=== PATIENT | male | born 1935 | race Caucasian/White ===

== ENCOUNTER → 2018-05-04 16:27 | Outpatient (CLI) | payer MEDICARE, OTHER, SELFPAY ==
[2018-05-04 18:15] LABS: Vitamin D 25 Hydroxy (D3) 31.2 ng/mL (30.0-100.0)
== END ==
PROVIDERS: Family Provider Internal Medicine; PCP Internal Medicine; Visit Provider Psychiatry & Neurology Neurology
DX: E55.9 Vitamin D deficiency, unspecified (principal)
CPT/HCPCS: 36415; 82306

== ENCOUNTER 2018-07-21 10:59 | Day surgery (SDC) | payer MEDICARE, OTHER, SELFPAY ==
[2018-07-09 09:21] VITALS: BMI 24.7
[2018-07-21] MEDS: PROPARACAINE 0.5% OPHTH SOL 2 DROPS EYE-OP (12:50)
[2018-07-21] MEDS: CATARACT EYE COMPOUND (10 DROPS/SYRINGE) 3 DROPS EYE-OP (12:55)
[2018-07-21 12:58] VITALS: BP 159/69; PULSE 58; RESP 16; TEMP 36.3; O2SAT 98; BMI 25.0
--- NOTE | 2018-07-21 13:41 | P.OP_ITS ---
Operative Date/Time/Diagnoses Pre-op diagnosis: Nuclear cataract right eye Procedure & Clinicians Procedure: Cataract Surgery Same procedure as scheduled: Yes Surgeon: Kiran Patel Anesthesia Type: MAC +/- and Sedation Operative Notes Procedure in detail: Patient brought to the operating suite. Tetracaine drops placed in the right eye. Patient was prepped and draped in sterile manner. Wire lid speculum was placed in the eye. Betadine drops were placed on the eye. This was irrigated. Lidocaine jelly was placed on the eye. A paracentesis port was created with a side-port blade. 0.1 mL 1% preservative free lidocaine was injected into the anterior chamber. The anterior chamber was deepened with viscoelastic. 2.6 mm keratome was used to create a temporal clear corneal incision. Cystotome and Utrata forceps were used to create continuous tear capsulorrhexis. Balanced salt solution was used to hydro dissect the nucleus. The phacoemulsification handpiece was inserted and the nucleus was removed using the stop and chop technique. The irrigation aspiration handpiece was inserted and the remaining cortex was removed. Anterior chamber was deepened with viscoelastic. An Moran [id number] intraocular lens with a power of 15.5 was injected into the capsular bag. Irrigation aspiration handpiece was inserted and the remaining viscoelastic was removed. Incision was hydrated with balanced salt solution and found to be leak free with pressure with Weck- Lynda sponges. 0.1 mL Vigamox injected anterior chamber. 0.3 mL Kenalog 10 mg was injected subconjunctivally. Lid speculum was removed. The patient left the operating room in excellent condition. Complications: none Condition: stable Disposition: same day surgery
--- NOTE | 2018-07-21 13:41 | P.OP.PRE_ITS ---
Pre-operative Note Interval Note Changes: No
--- NOTE | 2018-07-21 13:41 | PM.PREOP ---
Pre-operative Note Interval Note Changes: No
[2018-07-21] MEDS: MOXIFLOXACIN OPHTH DROPS 3 ML BOTTLE 2 DROPS INJ (13:57)
[2018-07-21] MEDS: TRIAMCINOLONE 50 MG/5 ML VIAL INJ (13:57)
[2018-07-21] MEDS: PHENYLEPHRINE/LIDOCAINE VIAL (OR) 0.2 ML EYE-OP (13:57)
[2018-07-21] MEDS: CHONDROIDTIN/SOD HYALURONATE 1.05 ML SYRINGE INTRAOCULA (13:58)
[2018-07-21] MEDS: LIDOCAINE JELLY 2% 5 ML 1 APPLIC TOP (13:58)
[2018-07-21] MEDS: BALANCED SALT IRRIG SOLN NO.2 500 ML, EPINEPHrine 1 MG IRR (13:58)
[2018-07-21] MEDS: TETRACAINE 0.5% OPHTH DROPS 15 ML 2 DROPS EYE-RIGHT (13:58)
[2018-07-21 14:12] VITALS: BP 148/69; PULSE 60; RESP 16; TEMP 36.6; O2SAT 98
== END 2018-07-21 14:24 | disposition home or self-care (01) ==
LOC: OR 11:01
PROVIDERS: Family Provider Internal Medicine; PCP Internal Medicine; Visit Provider Ophthalmology
DX: H25.11 Age-related nuclear cataract, right eye (principal); F03.90 Unspecified dementia, unspecified severity, without behavioral disturbance, psychotic disturbance, mood disturbance, and anxiety
CPT/HCPCS: J0171; J2250; J3010; J3301

== ENCOUNTER 2018-07-27 15:40 | Emergency (ER) | payer MEDICARE, OTHER, SELFPAY ==
[2018-07-09 09:21] VITALS: BMI 24.7
[2018-07-27 16:34] VITALS: BP 116/67; PULSE 67; RESP 18; TEMP 37.1; O2SAT 97; BMI 24.0
[2018-07-27 18:59] VITALS: TEMP 37.1
--- NOTE | 2018-07-27 19:26 | DI.CT.S_ITS ---
PROCEDURE: CT HEAD/BRAIN WO CON INDICATIONS: confusion,weakness TECHNIQUE: Noncontrast 4.5 mm thick angled axial sections acquired from the foramen magnum to the vertex, with coronal and sagittal reformats. For radiation dose reduction, the following was used: automated exposure control, adjustment of mA and/or kV according to patient size. COMPARISON: [facility], MR, MR BRAIN WO CON, 09/05/2016, 13:32. FINDINGS: Image quality: Excellent. CSF spaces: Basal cisterns are patent. No extra-axial fluid collections. The ventricles are symmetric in size and shape. Brain: No intracranial bleeds or masses. There is cerebral volume loss for age, with resultant ventricular and sulcal prominence. There are periventricular and deep white matter chronic small vessel ischemic changes. There is intracranial internal carotid artery atherosclerosis. Skull and face: Calvarium and visualized facial bones appear intact, without suspicious lesions. Sinuses: Visualized sinuses and mastoids are clear. IMPRESSION: No significant of acute intracranial pathology. Moderate atrophy and mild periventricular white matter microangiopathic changes. Dictated by: Gerson Weir M.D. on 07/27/2018 at 19:47 Approved by: Gerson Weir M.D. on 07/27/2018 at 19:48
--- NOTE | 2018-07-27 19:26 | DI.RAD.S_ITS ---
PROCEDURE: XR CHEST 1V INDICATIONS: weakness TECHNIQUE: One view of the chest was acquired. COMPARISON: [facility], , CHEST 2 VIEW, 10/07/2017, 15:59. FINDINGS: Surgical changes and devices: None. Lungs and pleura: Small left pleural effusion and bilateral pulmonary edema is seen. No definite focal infiltrate. No gross pneumothorax. Mediastinum: Mediastinal contours appear normal. Heart size is normal. Bones and chest wall: No suspicious bony lesions. Overlying soft tissues appear unremarkable. IMPRESSION: Congestive changes and small left pleural effusion with mild bilateral pulmonary edema. No definite focal infiltrate. No gross pneumothorax. Dictated by: Gerson Weir M.D. on 07/27/2018 at 19:48 Approved by: Gerson Weir M.D. on 07/27/2018 at 19:50
--- NOTE | 2018-07-27 19:58 | ED.AMS ---
HPI - Altered Mental Status General Chief Complaint: Altered Mental Status Stated Complaint: can barely walk or stand, confusion Time Seen by Provider: 07/27/18 19:08 Source: patient and family Mode of arrival: ambulatory Limitations: no limitations History of Present Illness HPI narrative: 83-year-old former smoker presents with his for evaluation of generalized fatigue he for the past few days. Admittedly he has had a harder time getting around and states he might have been more confused and a bit sluggish as well. The patient states he actually feels much better today. He denies any focal neurologic findings such as blurred vision, trouble with speech or numbness, focal weakness or tingling. He denies nausea, vomiting or diarrhea. He denies any chest pain or shortness of breath. He denies any change in his diet. He does state he recently started taking acetazolamide as prescribed by his administrator health care facility for trouble with ocular pressures. He also takes memantine and there is a possibility of a drug interaction causing increased memantine levels due to limited renal excretion. Patient is otherwise well and free of complaint. MD complaint: altered mental status and confusion Onset (ago): day(s) Timing confirmed by: spouse Severity: moderate Consistency of symptoms: unknown Associated symptoms: denies other symptoms Related Data Home Medications Medication Instructions Recorded Confirmed donepezil [Aricept] 2 tab PO QPM #0 10/04/17 07/27/18 fluoxetine 20 mg PO QDAY #0 10/04/17 07/27/18 latanoprost BEDTIME 07/21/18 memantine [Namenda] 10 mg PO BID 07/21/18 07/27/18 salmeterol [Serevent Diskus] 1 inh INHALATION BID 07/21/18 07/27/18 acetazolamide 1 tab PO QID 07/27/18 07/27/18 ergocalciferol (vitamin D2) 1 cap PO QWEEK 07/27/18 07/27/18 [Vitamin D2] Allergies Allergy/AdvReac Type Severity Reaction Status Date / Time No Known Allergies Allergy Uncoded 07/27/18 16:40 Review of Systems Review of Systems All systems reviewed & are unremarkable except as noted in HPI and below Constitutional Denies chills, Denies fever(s), Denies lethargy and Reports weakness Eyes Denies change in vision, Denies eye discharge, Denies irritation and Denies loss of vision ENT Ears, Nose, Mouth, and Throat: Denies change in voice, Denies neck pain and Denies sore throat Cardiovascular Denies chest pain, Denies irregular heart rhythm, Denies lightheadedness, Denies palpitations, Denies dyspnea, Denies dyspnea on exertion and Denies orthopnea Respiratory Denies cough, Denies dyspnea, Denies dyspnea on exertion and Denies wheezing Gastrointestinal Gastrointestinal: Denies abdominal pain, Denies change in bowel habits, Denies diarrhea, Denies nausea and Denies vomiting Genitourinary Denies hematuria, Denies flank pain, Denies urinary incontinence and Denies urinary urgency Musculoskeletal Denies neck pain Integumentary/Breasts Denies pruritus, Denies erythema, Denies rash and Denies wounds Neurologic Denies confusion, Denies loss of vision and Reports weakness Psychiatric Denies anxiety, Denies confusion, Denies depression, Denies homicidal ideation and Denies suicidal ideation Endocrine Denies palpitations Hematologic/Lymphatic Denies easy bruising Allergic/Immunologic Denies wheezing Exam Narrative Exam Narrative: 83-year-old male resting comfortably in no obvious distress Initial Vital Signs Initial Vital Signs: Vital Signs Temperature 98.8 F 07/27/18 16:34 Pulse Rate 67 07/27/18 16:34 Respiratory Rate 18 07/27/18 16:34 Blood Pressure 116/67 07/27/18 16:34 Pulse Oximetry 97 07/27/18 16:34 Const General: cooperative and well developed Nutritional Appearance: well nourished Orientation: alert, awake, oriented x3 and confused Other: slightly confused per , but not a tremendous departure from normal. [facility] Head: normocephalic and atraumatic Ears: external ears normal and TM's normal bilaterally Nose: external nose normal and No nasal discharge Face and sinus: sinuses nontender, face symmetric, no sinus tenderness and No dry mucous membranes Mouth: oral mucosae normal and moist mucous membranes Teeth and gingiva: dentition normal Throat: tonsils normal and uvula midline Eyes General: appearance normal, both eyes and all related structures Eyelids: eyelids normal Conjunctivae: conjunctivae normal Sclera: sclerae normal Pupils: PERRL EOM: EOM intact bilaterally Neck Neck: normal visual inspection, trachea midline, No lymphadenopathy, No midline deformity and No JVD Lymphatic: No lymphedema Chest Chest: normal inspection of the chest Resp Effort & Inspection: normal respiratory effort, able to speak in complete sentences, no respiratory distress and no use of accessory muscles Auscultation: clear to auscultation bilaterally, no rales, no rhonchi and no wheezes Cardio Rate: regular rate Rhythm: regular rhythm Heart Sounds: no click, no gallops, no murmurs and no rubs Pulses: normal peripheral pulses GI Inspection: non-distended Palpation: soft, no hepatosplenomegaly, No guarding, No pulsatile mass and No tender Auscultation: normal bowel sounds Back/Spine/Pelvis Back: No CVA tenderness Cervical Spine: cervical ROM normal and No pain with cervical ROM Thoracic/Lumbar Spine: thoracic and lumbar spine normal to inspection Neuro General: alert, oriented x3 and no focal motor deficits Speech: speech normal Other: NIH Stroke Scale 1a. LOC: Patient is alert and keenly responsive (0) 1b. LOC Questions: Patient answers both LOC questions accurately (0) 1c. LOC Commands: Patient performs both tasks correctly (0) 2. Best Gaze: Normal (0) 3. Visual: No visual loss (0) 4. Facial palsy: Normal symmetrical movements (0) 5. Motor arm: No drift (0) 6. Motor leg: No drift (0) 7. Limb ataxia: Absent (0) 8. Sensory: Normal (0) 9. Best language: No aphasia; normal (0) 10. Dysarthria: Normal (0) 11. Extinction and inattention: No abnormality (0) NIHSS: 0 Extrem General: full ROM, no clubbing, cyanosis or edema, no pedal edema and no calf tenderness Psych Appearance: well kempt Mental Status: mental status grossly normal Attitude: cooperative Thought Content: normal and suicidality Judgment: judgment good Course Orders Ordered: ED Orders 07/27/18 19:26 CT head/brain wo con Stat XR chest 1V Stat EKG-12 Lead Stat 07/27/18 19:49 Basic Metabolic Panel Stat Complete Blood Count AUTO DIFF Stat Troponin I Stat Vital Signs - 8 hr 07/27/18 18:59 Temperature 98.7 F MDM - Altered Mental Status Differential Diagnosis Likely altered mental status, delirium, hypoglycemia, hyponatremia and subarachnoid hemorrhage Medical Records Attestation: I reviewed the patient's medical records. Lab Data Attestation: I reviewed the patient's lab results. Result diagrams: 07/27/18 19:49 07/27/18 19:49 Lab Results 07/27/18 07/27/18 Range/Units 19:49 19:49 WBC 8.2 (4.5-11.0) X10^3/uL RBC 5.41 (4.5-5.9) X10^6/uL Hgb 15.2 (13.5-17.5) g/dL Hct 46.6 (41-53) % MCV 86.2 (80-100) fL MCH 28.1 (26-34) PG MCHC 32.6 (30-36) % RDW 13.9 (11.6-14.8) % Plt Count 310 (150-400) X10^3/uL Neut % (Auto) 68.9 (50-75) % Lymph % (Auto) 12.3 L (25-40) % [place] % (Auto) 8.9 (3-14) % Eos % (Auto) 9.0 H (2-4) % Baso % (Auto) 0.9 (0-2) % Neut # (Auto) 5600 (5513-4149) /uL Sodium 144 (137-145) mmol/L Potassium 4.1 (3.4-5.1) mmol/L Chloride 109 H (98-107) mmol/L Carbon Dioxide 21 L (22-32) mmol/L BUN 18 (9-20) mg/dL Creatinine 1.40 H (0.66-1.25) mg/dL Estimated GFR 48.6 L (>60) mL/min BUN/Creatinine Ratio 12.9 (6-22) Glucose 95 (80-110) mg/dL Calcium 9.8 (8.4-10.2) mg/dL Troponin I < 0.012 (0.01-0.034) ng/mL Imaging Data CT scan - head: Radiologist's impression: [address] [address] [address] Scan Report Signed Patient: Nathaniel Regan [facility]#: [id number] : 7Acct:[id number] Age/Sex: 83 / MDate of Service: 07/27/18 Loc: ED Accession Number: [id number] Procedure: CT head/brain wo con Ordering Provider: Ben Oliva D.O. PROCEDURE: CT HEAD/BRAIN WO CON INDICATIONS: confusion,weakness TECHNIQUE: Noncontrast 4.5 mm thick angled axial sections acquired from the foramen magnum to the vertex, with coronal and sagittal reformats. For radiation dose reduction, the following was used: automated exposure control, adjustment of mA and/or kV according to patient size. COMPARISON: [facility], MR, MR BRAIN WO CON, 09/05/2016, 13:32. FINDINGS: Image quality: Excellent. CSF spaces: Basal cisterns are patent. No extra-axial fluid collections. The ventricles are symmetric in size and shape. Brain: No intracranial bleeds or masses. There is cerebral volume loss for age, with resultant ventricular and sulcal prominence. There are periventricular and deep white matter chronic small vessel ischemic changes. There is intracranial internal carotid artery atherosclerosis. Skull and face: Calvarium and visualized facial bones appear intact, without suspicious lesions. Sinuses: Visualized sinuses and mastoids are clear. IMPRESSION: No significant of acute intracranial pathology. Moderate atrophy and mild periventricular white matter microangiopathic changes. Dictated by: Gerson Weir M.D. on 07/27/2018 at 19:47 Approved by: Gerson Weir M.D. on 07/27/2018 at 19:48 ECG Data Attestation: I personally reviewed and interpreted this ECG as follows: Prior ECG tracings: not available for review MDM Narrative Medical decision making narrative: Patient continues to feel improvement. No significant findings on exam, labs, imaging. Recent medication changes could surely be playing a role. Unclear if slight bump in creatinine is a result or cause of how he has been feeling. Patient able to follow closely with PCP. quite comfortable taking him home. Discharge Plan Departure Patient Disposition: Home Clinical Impression: Weakness Discharge Date/Time: 07/27/18 22:00 Interventions: ED Discharge Assessment Last Done: 07/27/18 22:00 Instructions: DI for Fatigue Activity Restrictions/Additional Instructions: *You have been diagnosed with [ generalized weakness and fatigue, subtle dehydration and possible medication reaction ] *What to do: * stop taking acetazolamide *Follow up with your primary care provider in 2-3 days, call for an appointment. Let them know you were seen in the Emergency Department and that we ask that you be seen in follow up *Return to ER if you should have any new, worsening or concerning symptoms, such as [increased weakness, confusion or fatigue. Please also return for any other bothersome symptoms ] Prescriptions: No Action fluoxetine 20 MG capsule 20 mg PO QDAY Qty: 0 RF: 0 donepezil [Aricept] 10 MG tablet 2 tab PO QPM Qty: 0 RF: 0 latanoprost 0.005 % Drops BEDTIME RF: 0 salmeterol [Serevent Diskus] 50 mcg/dose Blister With Device 1 inh INHALATION BID RF: 0 memantine [Namenda] 10 mg Tablet 10 mg PO BID RF: 0 acetazolamide 250 mg tablet 1 tab PO QID RF: 0 ergocalciferol (vitamin D2) [Vitamin D2] 50,000 unit capsule 1 cap PO QWEEK RF: 0 Referrals: Kenny Bruno MD [Primary Care Provider] -
[2018-07-27 20:04] LABS: Add Manual Diff / Slide Review NO; Basophils Percent Auto 0.9 % (0-2); Hematocrit 46.6 % (41-53); Hemoglobin 15.2 g/dL (13.5-17.5); Lymphocytes Percent Auto 12.3 % (25-40); Mean Corpuscular HGB Conc 32.6 % (30-36); Mean Corpuscular Hemoglobin 28.1 PG (26-34); Mean Corpuscular Volume 86.2 fL (80-100); Monocytes Percent Auto 8.9 % (3-14); Neutrophils Absolute Auto 5600 /uL (3000-5900); Neutrophils Percent Auto 68.9 % (50-75); Platelet Count 310 X10^3/uL (150-400); Red Blood Cell Count 5.41 X10^6/uL (4.5-5.9); Red Cell Distribution Width 13.9 % (11.6-14.8); White Blood Cell Count 8.2 X10^3/uL (4.5-11.0)
[2018-07-27 20:15] LABS: BUN Creatinine Ratio 12.9 (6-22); Blood Urea Nitrogen 18 mg/dL (9-20); Calcium 9.8 mg/dL (8.4-10.2); Carbon Dioxide 21 mmol/L (22-32); Chloride 109 mmol/L (98-107); Estimated Glomerular Filt Rate 48.6 mL/min (>60); Glucose 95 mg/dL (80-110); HEMOLYSIS < 15 (0-50); Potassium 4.1 mmol/L (3.4-5.1); Sodium 144 mmol/L (137-145)
[2018-07-27 20:27] LABS: Troponin I < 0.012 ng/mL (0.01-0.034)
--- NOTE | 2018-07-28 02:30 | ED_ITS ---
HPI - Altered Mental Status General Chief Complaint: Altered Mental Status Stated Complaint: can barely walk or stand, confusion Time Seen by Provider: 07/27/18 19:08 Source: patient and family Mode of arrival: ambulatory Limitations: no limitations History of Present Illness HPI narrative: 83-year-old former smoker presents with his for evaluation of generalized fatigue he for the past few days. Admittedly he has had a harder time getting around and states he might have been more confused and a bit sluggish as well. The patient states he actually feels much better today. He denies any focal neurologic findings such as blurred vision, trouble with speech or numbness, focal weakness or tingling. He denies nausea, vomiting or diarrhea. He denies any chest pain or shortness of breath. He denies any change in his diet. He does state he recently started taking acetazolamide as prescribed by his ditch cleaner for trouble with ocular pressures. He also takes memantine and there is a possibility of a drug interaction causing increased memantine levels due to limited renal excretion. Patient is otherwise well and free of complaint. MD complaint: altered mental status and confusion Onset (ago): day(s) Timing confirmed by: spouse Severity: moderate Consistency of symptoms: unknown Associated symptoms: denies other symptoms Related Data Home Medications Medication Instructions Recorded Confirmed donepezil [Aricept] 2 tab PO QPM #0 10/04/17 07/27/18 fluoxetine 20 mg PO QDAY #0 10/04/17 07/27/18 latanoprost BEDTIME 07/21/18 memantine [Namenda] 10 mg PO BID 07/21/18 07/27/18 salmeterol [Serevent Diskus] 1 inh INHALATION BID 07/21/18 07/27/18 acetazolamide 1 tab PO QID 07/27/18 07/27/18 ergocalciferol (vitamin D2) 1 cap PO QWEEK 07/27/18 07/27/18 [Vitamin D2] Allergies Allergy/AdvReac Type Severity Reaction Status Date / Time No Known Allergies Allergy Uncoded 07/27/18 16:40 Review of Systems Review of Systems All systems reviewed & are unremarkable except as noted in HPI and below Constitutional Denies chills, Denies fever(s), Denies lethargy and Reports weakness Eyes Denies change in vision, Denies eye discharge, Denies irritation and Denies loss of vision ENT Ears, Nose, Mouth, and Throat: Denies change in voice, Denies neck pain and Denies sore throat Cardiovascular Denies chest pain, Denies irregular heart rhythm, Denies lightheadedness, Denies palpitations, Denies dyspnea, Denies dyspnea on exertion and Denies orthopnea Respiratory Denies cough, Denies dyspnea, Denies dyspnea on exertion and Denies wheezing Gastrointestinal Gastrointestinal: Denies abdominal pain, Denies change in bowel habits, Denies diarrhea, Denies nausea and Denies vomiting Genitourinary Denies hematuria, Denies flank pain, Denies urinary incontinence and Denies urinary urgency Musculoskeletal Denies neck pain Integumentary/Breasts Denies pruritus, Denies erythema, Denies rash and Denies wounds Neurologic Denies confusion, Denies loss of vision and Reports weakness Psychiatric Denies anxiety, Denies confusion, Denies depression, Denies homicidal ideation and Denies suicidal ideation Endocrine Denies palpitations Hematologic/Lymphatic Denies easy bruising Allergic/Immunologic Denies wheezing Exam Narrative Exam Narrative: 83-year-old male resting comfortably in no obvious distress Initial Vital Signs Initial Vital Signs: Vital Signs Temperature 98.8 F 07/27/18 16:34 Pulse Rate 67 07/27/18 16:34 Respiratory Rate 18 07/27/18 16:34 Blood Pressure 116/67 07/27/18 16:34 Pulse Oximetry 97 07/27/18 16:34 Const General: cooperative and well developed Nutritional Appearance: well nourished Orientation: alert, awake, oriented x3 and confused Other: slightly confused per , but not a tremendous departure from normal. [facility] Head: normocephalic and atraumatic Ears: external ears normal and TM's normal bilaterally Nose: external nose normal and No nasal discharge Face and sinus: sinuses nontender, face symmetric, no sinus tenderness and No dry mucous membranes Mouth: oral mucosae normal and moist mucous membranes Teeth and gingiva: dentition normal Throat: tonsils normal and uvula midline Eyes General: appearance normal, both eyes and all related structures Eyelids: eyelids normal Conjunctivae: conjunctivae normal Sclera: sclerae normal Pupils: PERRL EOM: EOM intact bilaterally Neck Neck: normal visual inspection, trachea midline, No lymphadenopathy, No midline deformity and No JVD Lymphatic: No lymphedema Chest Chest: normal inspection of the chest Resp Effort & Inspection: normal respiratory effort, able to speak in complete sentences, no respiratory distress and no use of accessory muscles Auscultation: clear to auscultation bilaterally, no rales, no rhonchi and no wheezes Cardio Rate: regular rate Rhythm: regular rhythm Heart Sounds: no click, no gallops, no murmurs and no rubs Pulses: normal peripheral pulses GI Inspection: non-distended Palpation: soft, no hepatosplenomegaly, No guarding, No pulsatile mass and No tender Auscultation: normal bowel sounds Back/Spine/Pelvis Back: No CVA tenderness Cervical Spine: cervical ROM normal and No pain with cervical ROM Thoracic/Lumbar Spine: thoracic and lumbar spine normal to inspection Neuro General: alert, oriented x3 and no focal motor deficits Speech: speech normal Other: NIH Stroke Scale 1a. LOC: Patient is alert and keenly responsive (0) 1b. LOC Questions: Patient answers both LOC questions accurately (0) 1c. LOC Commands: Patient performs both tasks correctly (0) 2. Best Gaze: Normal (0) 3. Visual: No visual loss (0) 4. Facial palsy: Normal symmetrical movements (0) 5. Motor arm: No drift (0) 6. Motor leg: No drift (0) 7. Limb ataxia: Absent (0) 8. Sensory: Normal (0) 9. Best language: No aphasia; normal (0) 10. Dysarthria: Normal (0) 11. Extinction and inattention: No abnormality (0) NIHSS: 0 Extrem General: full ROM, no clubbing, cyanosis or edema, no pedal edema and no calf tenderness Psych Appearance: well kempt Mental Status: mental status grossly normal Attitude: cooperative Thought Content: normal and suicidality Judgment: judgment good Course Orders Ordered: ED Orders 07/27/18 19:26 CT head/brain wo con Stat XR chest 1V Stat EKG-12 Lead Stat 07/27/18 19:49 Basic Metabolic Panel Stat Complete Blood Count AUTO DIFF Stat Troponin I Stat Vital Signs - 8 hr 07/27/18 18:59 Temperature 98.7 F MDM - Altered Mental Status Differential Diagnosis Likely altered mental status, delirium, hypoglycemia, hyponatremia and subarachnoid hemorrhage Medical Records Attestation: I reviewed the patient's medical records. Lab Data Attestation: I reviewed the patient's lab results. Result diagrams: 07/27/18 19:49 07/27/18 19:49 Lab Results 07/27/18 07/27/18 Range/Units 19:49 19:49 WBC 8.2 (4.5-11.0) X10^3/uL RBC 5.41 (4.5-5.9) X10^6/uL Hgb 15.2 (13.5-17.5) g/dL Hct 46.6 (41-53) % MCV 86.2 (80-100) fL MCH 28.1 (26-34) PG MCHC 32.6 (30-36) % RDW 13.9 (11.6-14.8) % Plt Count 310 (150-400) X10^3/uL Neut % (Auto) 68.9 (50-75) % Lymph % (Auto) 12.3 L (25-40) % [place] % (Auto) 8.9 (3-14) % Eos % (Auto) 9.0 H (2-4) % Baso % (Auto) 0.9 (0-2) % Neut # (Auto) 5600 (8091-9600) /uL Sodium 144 (137-145) mmol/L Potassium 4.1 (3.4-5.1) mmol/L Chloride 109 H (98-107) mmol/L Carbon Dioxide 21 L (22-32) mmol/L BUN 18 (9-20) mg/dL Creatinine 1.40 H (0.66-1.25) mg/dL Estimated GFR 48.6 L (>60) mL/min BUN/Creatinine Ratio 12.9 (6-22) Glucose 95 (80-110) mg/dL Calcium 9.8 (8.4-10.2) mg/dL Troponin I < 0.012 (0.01-0.034) ng/mL Imaging Data CT scan - head: Radiologist's impression: [address] [address] [address] Scan Report Signed Patient: Nathaniel Regan AM[facility]#: [id number] : 7Acct:[id number] Age/Sex: 83 / MDate of Service: 07/27/18 Loc: ED Accession Number: [id number] Procedure: CT head/brain wo con Ordering Provider: Ben Oliva D.O. PROCEDURE: CT HEAD/BRAIN WO CON INDICATIONS: confusion,weakness TECHNIQUE: Noncontrast 4.5 mm thick angled axial sections acquired from the foramen magnum to the vertex, with coronal and sagittal reformats. For radiation dose reduction, the following was used: automated exposure control, adjustment of mA and/or kV according to patient size. COMPARISON: [facility], MR, MR BRAIN WO CON, 09/05/2016, 13:32. FINDINGS: Image quality: Excellent. CSF spaces: Basal cisterns are patent. No extra-axial fluid collections. The ventricles are symmetric in size and shape. Brain: No intracranial bleeds or masses. There is cerebral volume loss for age , with resultant ventricular and sulcal prominence. There are periventricular and deep white matter chronic small vessel ischemic changes. There is intracranial internal carotid artery atherosclerosis. Skull and face: Calvarium and visualized facial bones appear intact, without suspicious lesions. Sinuses: Visualized sinuses and mastoids are clear. IMPRESSION: No significant of acute intracranial pathology. Moderate atrophy and mild periventricular white matter microangiopathic changes. Dictated by: Gerson Weir M.D. on 07/27/2018 at 19:47 Approved by: Gerson Weir M.D. on 07/27/2018 at 19:48 ECG Data Attestation: I personally reviewed and interpreted this ECG as follows: Prior ECG tracings: not available for review MDM Narrative Medical decision making narrative: Patient continues to feel improvement. No significant findings on exam, labs, imaging. Recent medication changes could surely be playing a role. Unclear if slight bump in creatinine is a result or cause of how he has been feeling. Patient able to follow closely with PCP. quite comfortable taking him home. Discharge Plan Departure Patient Disposition: Home Clinical Impression: Weakness Discharge Date/Time: 07/27/18 22:00 Interventions: ED Discharge Assessment Last Done: 07/27/18 22:00 Instructions: DI for Fatigue Activity Restrictions/Additional Instructions: *You have been diagnosed with [ generalized weakness and fatigue, subtle dehydration and possible medication reaction ] *What to do: * stop taking acetazolamide *Follow up with your primary care provider in 2-3 days, call for an appointment. Let them know you were seen in the Emergency Department and that we ask that you be seen in follow up *Return to ER if you should have any new, worsening or concerning symptoms , such as [increased weakness, confusion or fatigue. Please also return for any other bothersome symptoms ] Prescriptions: No Action fluoxetine 20 MG capsule 20 mg PO QDAY Qty: 0 RF: 0 donepezil [Aricept] 10 MG tablet 2 tab PO QPM Qty: 0 RF: 0 latanoprost 0.005 % Drops BEDTIME RF: 0 salmeterol [Serevent Diskus] 50 mcg/dose Blister With Device 1 inh INHALATION BID RF: 0 memantine [Namenda] 10 mg Tablet 10 mg PO BID RF: 0 acetazolamide 250 mg tablet 1 tab PO QID RF: 0 ergocalciferol (vitamin D2) [Vitamin D2] 50,000 unit capsule 1 cap PO QWEEK RF: 0 Referrals: Kenny Bruno MD [Primary Care Provider] -
== END 2018-07-27 22:00 | disposition home or self-care (01) ==
PROVIDERS: Emergency Provider Emergency Medicine; Family Provider Internal Medicine; PCP Internal Medicine
DX: R53.1 Weakness (principal)
CPT/HCPCS: 36591; 70450; 71045; 80048; 84484; 85025; 93005; 93010; 99282; 99285

== ENCOUNTER 2019-03-09 11:57 | Observation (INO) | payer MEDICARE, OTHER, SELFPAY ==
[2018-07-09 09:21] VITALS: BMI 24.7
[2019-03-09] VITALS (14 sets, daily range): BP systolic 95–173; BP diastolic 46–79; PULSE 54–73; RESP 16–24; TEMP 36.6–36.8; O2SAT 93–99; BMI 25.4
--- NOTE | 2019-03-09 12:10 | DI.RAD.S_ITS ---
PROCEDURE: XR CHEST 1V INDICATIONS: weakness, wheezing TECHNIQUE: One view of the chest was acquired. COMPARISON: [facility], CR, XR CHEST 1V, 07/27/2018, 19:06. FINDINGS: Surgical changes and devices: None. Lungs and pleura: Hyperlucent, hyperinflated lungs with diffusely coarse interstitial markings. No pneumothorax, consolidations, or significant pleural effusions. Chronic bibasilar parenchymal scarring. Mediastinum: Mediastinal contours appear normal. Heart size is normal. Bones and chest wall: Deformities of healing the right rib fractures 5 and 6. Overlying soft tissues are normal. IMPRESSION: Changes of COPD/emphysema. No other acute findings. Dictated by: Fidelina Valdivia M.D. on 03/09/2019 at 13:29 Approved by: Fidelina Valdivia M.D. on 03/09/2019 at 13:30
--- NOTE | 2019-03-09 12:17 | ED_ITS ---
HPI - Fall <JORDY Mejía-BC - Last Filed: 03/09/19 20:32> General Chief Complaint: Fall Stated Complaint: Fall Time Seen by Provider: 03/09/19 12:02 Source: EMS Mode of arrival: EMS History of Present Illness HPI Narrative: The patient is an 84-year-old male with history of dementia who is a former smoker presents by EMS with chief complaint of a fall and weakness. The patient had a ground level fall 1.5 days ago, where his legs just gave out and he felt weak. Currently denies any specific pain, but does complain of generalized weakness. He has been sleeping on the floor for the past day and a half as his could not help him up. He denies any chest pain, shortness of breath fever dysuria urgency or frequency. His states that the patient was in respite care until Friday, and then this occurred on Friday. She denies any specific slurring of speech or neurological concerns. She states that she would like the patient to have been brought to a rehab facility rather than the emergency department. Related Data Home Medications Medication Instructions Recorded Confirmed donepezil [Aricept] 2 tab PO QPM #0 10/04/17 03/09/19 fluoxetine 20 mg PO QDAY #0 10/04/17 03/09/19 latanoprost 1 drp EYE-BOTH BEDTIME 07/21/18 03/09/19 memantine [Namenda] 10 mg PO BID 07/21/18 03/09/19 salmeterol [Serevent Diskus] 1 inh INHALATION BID 07/21/18 03/09/19 ergocalciferol (vitamin D2) 1 cap PO QWEEK 07/27/18 03/09/19 [Vitamin D2] cyanocobalamin (vitamin B-12) 1,000 mcg PO DAILY 03/09/19 03/09/19 dorzolamide 1 drp OPHTHALMIC (EYE) TID 03/09/19 03/09/19 Allergies Allergy/AdvReac Type Severity Reaction Status Date / Time No Known Drug Allergies Allergy Verified 03/09/19 12:10 Review of Systems <CARLTON Mejía - Last Filed: 03/09/19 20:32> Review of Systems GENERAL: Denies chills, fatigue, malaise, fever, sweats. HEENT: Denies sinus pain, ear pain, sore throat, difficulty swallowing, dizziness. RESPIRATORY: Denies dyspnea, cough, wheezing, hemoptysis, sputum. CARDIOVASCULAR: Denies chest pain, palpitations, orthopnea, edema, GASTROINTESTINAL: Denies nausea, vomiting, abdominal pain, diarrhea, constipation, melena. : Denies dysuria, frequency, incontinence, hematuria, urinary retention. MUSCULOSKELETAL: See HPI SKIN: Denies rash, skin lesions, or other NEUROLOGIC: See HPI PSYCHIATRIC: No concerning psychosocial issues. 12 point review of systems is negative except for those stated above Exam <Armida Dent, NATURAL RESOURCE TECHNICIAN-BC - Last Filed: 03/09/19 20:32> Narrative Exam Narrative: GENERAL: This is a well-nourished, well-developed patient, in no acute distress HEAD: Atraumatic. Normocephalic. No temporal or scalp tenderness. EYES: Pupils equal round and reactive. Extraocular motions intact. No scleral icterus. No injection or drainage. ENT: Nose without bleeding, purulent drainage or septal hematoma. Throat without erythema, tonsillar hypertrophy or exudate. Uvula midline. Airway patent. NECK: Trachea midline. No JVD or lymphadenopathy. Supple, nontender, no meningeal signs. CARDIOVASCULAR: Regular rate and rhythm without murmurs, gallops, or rubs. RESPIRATORY: . Breath sounds equal bilaterally. Expiratory wheezes bilater ally.no rales, or rhonchi. Occasional cough. No accessory muscle use, no stridor. GASTROINTESTINAL: Abdomen soft, non-tender, nondistended. No hepato- splenomegaly, or palpable masses. No guarding. Active bowel sounds. EXTREMITIES: No clubbing, cyanosis, or edema. No joint tenderness, effusion, or edema noted. BACK: Nontender without deformity or crepitance. No flank tenderness. No pain to C-spine or spinal palpation. NEURO: Alert. Oriented to name and place. Clear speech. No gross cranial nerve deficits. SKIN: No rash or erythema. Initial Vital Signs Initial Vital Signs: Vital Signs Temperature 98.2 F 03/09/19 12:07 Pulse Rate 54 L 03/09/19 12:07 Respiratory Rate 19 03/09/19 12:07 Blood Pressure 157/71 H 03/09/19 12:07 Pulse Oximetry 94 03/09/19 12:07 <Armida Stockton DO - Last Filed: 03/11/19 07:51> Initial Vital Signs Initial Vital Signs: Vital Signs Temperature 98.2 F 03/09/19 12:07 Pulse Rate 54 L 03/09/19 12:07 Respiratory Rate 03/09/19 12:07 Blood Pressure 157/71 H 03/09/19 12:07 Pulse Oximetry 94 03/09/19 12:07 PFSH <CARLTON Mejía - Last Filed: 03/09/19 20:32> Medical History COPD (chronic obstructive pulmonary disease) (Acute) Dementia (Acute) Depression (Acute) Emphysema lung (Acute) Gout (Acute) Presbycusis of both ears (Acute) Psoriasis (Acute) Surgical History History of appendectomy (Acute) History of right cataract extraction (Acute) History of tonsillectomy (Acute) Social History household members: spouse Smoking Status: Former smoker Tobacco: How many years used: 40 Social History household members: spouse Smoking Status: Former smoker Tobacco: How many years used: 40 Course <CARLTON Mejía - Last Filed: 03/09/19 20:32> Orders Ordered: Acetaminophen (Tylenol) 650 mg PO Q6H PRN PRN Reason: As Needed for Fever/Mild Pain Al Hydrox/Mg Hydrox/Simethicone (Maalox Plus) 30 ml PO Q6HR PRN PRN Reason: Dyspepsia Albuterol (Ventolin) 2.5 mg INH [id number] PRN PRN Reason: Shortness Of Breath Or Wheezing Albuterol/Ipratropium (Duoneb) 3 ml INH RTBID LIVIA Last Admin: 03/11/19 07:10 Dose: 3 ml Admin: 03/10/19 17:40 Dose: 3 ml Bisacodyl (Dulcolax) 10 mg PO DAILY PRN PRN Reason: Constipation Calcium Carbonate (Tums) 1,000 mg PO Q4H PRN PRN Reason: Dyspepsia Donepezil HCl (Aricept) 10 mg PO BEDTIME [facility] Last Admin: 03/10/19 23:15 Dose: 10 mg Admin: 03/09/19 22:07 Dose: 10 mg Dorzolamide HCl (Trusopt) 1 drops EYE-BOTH TID [facility] Last Admin: 03/10/19 23:16 Dose: 1 drops Admin: 03/10/19 15:00 Dose: 1 drops Admin: 03/10/19 10:16 Dose: 1 drops Admin: 03/09/19 22:08 Dose: 1 drops Enoxaparin Sodium (Lovenox) 40 mg SUBCUT DAILY [facility] Last Admin: 03/10/19 10:16 Dose: 40 mg Fluoxetine HCl (Prozac) 20 mg PO DAILY [facility] Last Admin: 03/10/19 10:16 Dose: 20 mg Latanoprost (Xalatan) 1 drops EYE-BOTH BEDTIME [facility] Last Admin: 03/10/19 23:16 Dose: 1 drops Admin: 03/09/19 22:08 Dose: 1 drops Memantine (Namenda) 10 mg PO BID [facility] Last Admin: 03/10/19 23:15 Dose: 10 mg Admin: 03/10/19 10:23 Dose: 10 mg Admin: 03/09/19 22:07 Dose: 10 mg Salmeterol Xinafoate (Serevent Diskus) 1 puff INH BID [facility] Last Admin: 03/11/19 07:10 Dose: 1 puff Admin: 03/10/19 17:40 Dose: 1 puff Admin: 03/10/19 05:50 Dose: 1 puff Admin: 03/09/19 22:03 Dose: 1 puff Sodium Chloride (Normal Saline 0.9% Flush) 10 ml IV BID [facility] Last Admin: 03/10/19 21:00 Dose: 10 ml Sodium Chloride (Normal Saline 0.9% Flush) 10 ml IV PRN PRN PRN Reason: Flush Last Admin: 03/10/19 11:26 Dose: 10 ml Discontinued Medications Albuterol (Ventolin) 2.5 mg INH [id number] [facility] Albuterol (Ventolin) 2.5 mg INH [id number] [facility] Last Admin: 03/09/19 22:03 Dose: 2.5 mg Albuterol/Ipratropium (Duoneb) 3 ml INH NOW ONE Stop: 03/09/19 12:35 Last Admin: 03/09/19 12:39 Dose: 3 ml Albuterol/Ipratropium (Duoneb) 3 ml INH RTBID LIVIA Albuterol/Ipratropium (Duoneb) 3 ml INH [id number] [facility] Last Admin: 03/10/19 11:00 Dose: 3 ml Admin: 03/10/19 05:50 Dose: 3 ml Sodium Chloride (Normal Saline 0.9%) 1,000 mls @ 1,000 mls/hr IV BOLUS ONE Stop: 03/09/19 14:41 Last Infusion: 03/09/19 16:07 Dose: 0 mls/hr Admin: 03/09/19 14:13 Dose: 1,000 mls/hr Vital Signs - 8 hr 03/11/19 00:00 03/11/19 04:00 03/11/19 07:21 Temperature 97.1 F L 97.0 F L Pulse Rate 70 58 L 54 L Respiratory Rate 18 18 16 Blood Pressure 149/76 H 159/72 H Blood Pressure [Orthostatic Lying] 159/72 H Blood Pressure [Orthostatic Sitting] 155/100 H Blood Pressure [Orthostatic Standing] 154/80 H Pulse Oximetry 98 95 97 <Armida Stockton, - Last Filed: 03/11/19 07:51> Orders Ordered: Acetaminophen (Tylenol) 650 mg PO Q6H PRN PRN Reason: As Needed for Fever/Mild Pain Al Hydrox/Mg Hydrox/Simethicone (Maalox Plus) 30 ml PO Q6HR PRN PRN Reason: Dyspepsia Albuterol (Ventolin) 2.5 mg INH [id number] PRN PRN Reason: Shortness Of Breath Or Wheezing Albuterol/Ipratropium (Duoneb) 3 ml INH RTBID [facility] Last Admin: 03/11/19 07:10 Dose: 3 ml Admin: 03/10/19 17:40 Dose: 3 ml Bisacodyl (Dulcolax) 10 mg PO DAILY PRN PRN Reason: Constipation Calcium Carbonate (Tums) 1,000 mg PO Q4H PRN PRN Reason: Dyspepsia Donepezil HCl (Aricept) 10 mg PO BEDTIME [facility] Last Admin: 03/10/19 23:15 Dose: 10 mg Admin: 03/09/19 22:07 Dose: 10 mg Dorzolamide HCl (Trusopt) 1 drops EYE-BOTH TID [facility] Last Admin: 03/10/19 23:16 Dose: 1 drops Admin: 03/10/19 15:00 Dose: 1 drops Admin: 03/10/19 10:16 Dose: 1 drops Admin: 03/09/19 22:08 Dose: 1 drops Enoxaparin Sodium (Lovenox) 40 mg SUBCUT DAILY [facility] Last Admin: 03/10/19 10:16 Dose: 40 mg Fluoxetine HCl (Prozac) 20 mg PO DAILY [facility] Last Admin: 03/10/19 10:16 Dose: 20 mg Latanoprost (Xalatan) 1 drops EYE-BOTH BEDTIME [facility] Last Admin: 03/10/19 23:16 Dose: 1 drops Admin: 03/09/19 22:08 Dose: 1 drops Memantine (Namenda) 10 mg PO BID [facility] Last Admin: 03/10/19 23:15 Dose: 10 mg Admin: 03/10/19 10:23 Dose: 10 mg Admin: 03/09/19 22:07 Dose: 10 mg Salmeterol Xinafoate (Serevent Diskus) 1 puff INH BID [facility] Last Admin: 03/11/19 07:10 Dose: 1 puff Admin: 03/10/19 17:40 Dose: 1 puff Admin: 03/10/19 05:50 Dose: 1 puff Admin: 03/09/19 22:03 Dose: 1 puff Sodium Chloride (Normal Saline 0.9% Flush) 10 ml IV BID [facility] Last Admin: 03/10/19 21:00 Dose: 10 ml Sodium Chloride (Normal Saline 0.9% Flush) 10 ml IV PRN PRN PRN Reason: Flush Last Admin: 03/10/19 11:26 Dose: 10 ml Discontinued Medications Albuterol (Ventolin) 2.5 mg INH [id number] [facility] Albuterol (Ventolin) 2.5 mg INH [id number] [facility] Last Admin: 03/09/19 22:03 Dose: 2.5 mg Albuterol/Ipratropium (Duoneb) 3 ml INH NOW ONE Stop: 03/09/19 12:35 Last Admin: 03/09/19 12:39 Dose: 3 ml Albuterol/Ipratropium (Duoneb) 3 ml INH RTBID LIVIA Albuterol/Ipratropium (Duoneb) 3 ml INH [id number] [id number] Last Admin: 03/10/19 11:00 Dose: 3 ml Admin: 03/10/19 05:50 Dose: 3 ml Sodium Chloride (Normal Saline 0.9%) 1,000 mls @ 1,000 mls/hr IV BOLUS ONE Stop: 03/09/19 14:41 Last Infusion: 03/09/19 16:07 Dose: 0 mls/hr Admin: 03/09/19 14:13 Dose: 1,000 mls/hr Vital Signs - 8 hr 03/11/19 00:00 03/11/19 04:00 03/11/19 07:21 Temperature 97.1 F L 97.0 F L Pulse Rate 70 58 L 54 L Respiratory Rate 18 18 16 Blood Pressure 149/76 H 159/72 H Blood Pressure [Orthostatic Lying] 159/72 H Blood Pressure [Orthostatic Sitting] 155/100 H Blood Pressure [Orthostatic Standing] 154/80 H Pulse Oximetry 98 95 97 MDM - Fall <JORDY Mejía- - Last Filed: 03/09/19 20:32> Lab Data Result diagrams: 03/09/19 12:34 03/09/19 12:34 Lab Results 03/09/19 03/09/19 03/09/19 Range/Units 12:34 12:34 12:34 WBC 6.4 (4.5-11.0) X10^3/uL RBC 4.96 (4.5-5.9) X10^6/uL Hgb 13.6 (13.5-17.5) g/dL Hct 41.9 (41-53) % MCV 84.4 (80-100) fL MCH 27.4 (26-34) PG MCHC 32.5 (30-36) % RDW 14.3 (11.6-14.8) % Plt Count 270 (150-400) X10^3/uL Neut % (Auto) 66.5 (50-75) % Lymph % (Auto) 16.4 L (25-40) % [place] % (Auto) 8.6 (3-14) % Eos % (Auto) 7.8 H (2-4) % Baso % (Auto) 0.7 (0-2) % Neut # (Auto) 4300 (4560-0520) /uL Lymph # (Auto) 1100 (1160-7761) /uL [place] # (Auto) 600 (0-900) /uL Eos # (Auto) 500 H (0-450) /uL Baso # (Auto) 0 (0-100) /uL PT 12.9 H (10.1-12.7) SECONDS INR 1.1 (0.9-1.3) Sodium 138 (137-145) mmol/L Potassium 4.4 (3.4-5.1) mmol/L Chloride 103 (98-107) mmol/L Carbon Dioxide 29 (22-32) mmol/L BUN 11 (9-20) mg/dL Creatinine 0.90 (0.66-1.25) mg/dL Estimated GFR > 60.0 (>60) mL/min BUN/Creatinine Ratio 12.2 (6-22) Glucose 92 (80-110) mg/dL Calcium 9.1 (8.4-10.2) mg/dL Total Bilirubin 0.4 (0.2-1.3) mg/dL AST 17 (17-59) IU/L ALT 14 L (21-72) IU/L Alkaline Phosphatase 98 (38-126) U/L Total Creatine Kinase 54 L (55-170) U/L CK-MB (CK-2) TNP CK-MB (CK-2) Rel Index TNP Troponin I < 0.012 (0.01-0.034) ng/mL B-Natriuretic Peptide < 100 (<100) Total Protein 6.5 (6.3-8.2) g/dL Albumin 3.6 (3.5-5.0) g/dL Globulin 2.9 (1.7-4.1) g/dL Albumin/Globulin Ratio 1.2 (1.0-2.8) Amylase 69 (30-110) U/L Lipase 89 (23-300) U/L 03/09/19 Range/Units 16:23 WBC (4.5-11.0) X10^3/uL RBC (4.5-5.9) X10^6/uL Hgb (13.5-17.5) g/dL Hct (41-53) % MCV (80-100) fL MCH (26-34) PG MCHC (30-36) % RDW (11.6-14.8) % Plt Count (150-400) X10^3/uL Neut % (Auto) (50-75) % Lymph % (Auto) (25-40) % [place] % (Auto) (3-14) % Eos % (Auto) (2-4) % Baso % (Auto) (0-2) % Neut # (Auto) (2117-1093) /uL Lymph # (Auto) (3519-4212) /uL [place] # (Auto) (0-900) /uL Eos # (Auto) (0-450) /uL Baso # (Auto) (0-100) /uL PT (10.1-12.7) SECONDS INR (0.9-1.3) Sodium (137-145) mmol/L Potassium (3.4-5.1) mmol/L Chloride (98-107) mmol/L Carbon Dioxide (22-32) mmol/L BUN (9-20) mg/dL Creatinine (0.66-1.25) mg/dL Estimated GFR (>60) mL/min BUN/Creatinine Ratio (6-22) Glucose (80-110) mg/dL Calcium (8.4-10.2) mg/dL Total Bilirubin (0.2-1.3) mg/dL AST (17-59) IU/L ALT (21-72) IU/L Alkaline Phosphatase (38-126) U/L Total Creatine Kinase 55 (55-170) U/L CK-MB (CK-2) TNP CK-MB (CK-2) Rel Index TNP Troponin I < 0.012 (0.01-0.034) ng/mL B-Natriuretic Peptide (<100) Total Protein (6.3-8.2) g/dL Albumin (3.5-5.0) g/dL Globulin (1.7-4.1) g/dL Albumin/Globulin Ratio (1.0-2.8) Amylase (30-110) U/L Lipase (23-300) U/L Urine Dip Bedside Urine Glucose Negative Bedside Urine Bilirubin - Negative Bedside Urine Ketone +/- 5 Urine Specific [place] 1.030 Bedside Urine Occult Blood - Negative Bedside Urine pH 5.5 Bedside Urine Protein +/- 15 Bedside Urine Urobilinogen +/- 1mg Bedside Urine Nitrite - Negative Bedside Urine Leukocytes - Negative Esterase Imaging Data CT scan - head: Radiologist's impression: Nathaniel Regan 84 M [address] [address] [address] Scan Report Signed Patient: Nathaniel Regan AMR#: [id number] : 1935cct:[id number] Age/Sex: 84 / MDate of Service: 03/09/19 Loc: ED Accession Number: [id number] Procedure: CT head/brain wo con Ordering Provider: Armida Dent PROCEDURE: CT HEAD/BRAIN WO CON INDICATIONS: fall TECHNIQUE: Noncontrast 4.5 mm thick angled axial sections acquired from the foramen magnum to the vertex, with coronal and sagittal reformats. For radiation dose reduction, the following was used: automated exposure control, adjustment of mA and/or kV according to patient size. COMPARISON: [facility], MR, MR BRAIN WO CON, 09/05/2016, 13:32. [facility], CT, CT HEAD/BRAIN WO CON, 07/27/2018, 19:26. FINDINGS: Image quality: Excellent. CSF spaces: Basal cisterns are patent. No extra-axial fluid collections. The ventricles are symmetric in shape and moderately enlarged, stable. Brain: No intracranial bleeds or masses. There is cerebral volume loss for age, with resultant ventricular and sulcal prominence. There are periventricular and deep white matter chronic small vessel ischemic changes. There is intracranial internal carotid artery atherosclerosis. Skull and face: Calvarium and visualized facial bones appear intact, without quintero spicious lesions. Sinuses: Visualized sinuses and mastoids are clear. IMPRESSION: 1. No CT evidence of acute intracranial trauma. 2. Mild to moderate hydrocephalus, out of proportion for degree of cerebral cortical atrophy. This is stable compared to the prior studies. Dictated by: Fidelina Valdivia M.D. on 03/09/2019 at 13:08 Approved by: Fidelina Valdivia M.D. on 03/09/2019 at 13:11 [facility] Narrative Medical decision making narrative: The patient is an 84-year-old male who presents for generalized weakness after spending a day and a half on a mattress on the floor. He has 2 negative troponins, a CT of his head without acute etiology, and a chest x-ray showing no acute etiology. He has no elevated white blood cell count and normal urine. He was not orthostatic. He was evaluated in the emergency department by Physical therapy as nursing was not comfortable ambulating with him. Per physical therapy, he is not safe to go home due to his generalized weakness. The patient was admitted to Dr. Krishnamurthy for observation and further evaluation. The patient's was okay with this and had no questions or concerns. <Armida Chikis Stockton, DO - Last Filed: 03/11/19 07:51> Lab Data Lab Results 03/09/19 03/09/19 03/09/19 Range/Units 12:34 12:34 12:34 WBC 6.4 (4.5-11.0) X10^3/uL RBC 4.96 (4.5-5.9) X10^6/uL Hgb 13.6 (13.5-17.5) g/dL Hct 41.9 (41-53) % MCV 84.4 (80-100) fL MCH 27.4 (26-34) PG MCHC 32.5 (30-36) % RDW 14.3 (11.6-14.8) % Plt Count 270 (150-400) X10^3/uL Neut % (Auto) 66.5 (50-75) % Lymph % (Auto) 16.4 L (25-40) % [place] % (Auto) 8.6 (3-14) % Eos % (Auto) 7.8 H (2-4) % Baso % (Auto) 0.7 (0-2) % Neut # (Auto) 4300 (8476-3344) /uL Lymph # (Auto) 1100 (8428-0804) /uL [place] # (Auto) 600 (0-900) /uL Eos # (Auto) 500 H (0-450) /uL Baso # (Auto) 0 (0-100) /uL PT 12.9 H (10.1-12.7) SECONDS INR 1.1 (0.9-1.3) Sodium 138 (137-145) mmol/L Potassium 4.4 (3.4-5.1) mmol/L Chloride 103 (98-107) mmol/L Carbon Dioxide 29 (22-32) mmol/L BUN 11 (9-20) mg/dL Creatinine 0.90 (0.66-1.25) mg/dL Estimated GFR > 60.0 (>60) mL/min BUN/Creatinine Ratio 12.2 (6-22) Glucose 92 (80-110) mg/dL Calcium 9.1 (8.4-10.2) mg/dL Total Bilirubin 0.4 (0.2-1.3) mg/dL AST 17 (17-59) IU/L ALT 14 L (21-72) IU/L Alkaline Phosphatase 98 (38-126) U/L Total Creatine Kinase 54 L (55-170) U/L CK-MB (CK-2) TNP CK-MB (CK-2) Rel Index TNP Troponin I < 0.012 (0.01-0.034) ng/mL B-Natriuretic Peptide < 100 (<100) Total Protein 6.5 (6.3-8.2) g/dL Albumin 3.6 (3.5-5.0) g/dL Globulin 2.9 (1.7-4.1) g/dL Albumin/Globulin Ratio 1.2 (1.0-2.8) Amylase 69 (30-110) U/L Lipase 89 (23-300) U/L 03/09/19 Range/Units 16:23 WBC (4.5-11.0) X10^3/uL RBC (4.5-5.9) X10^6/uL Hgb (13.5-17.5) g/dL Hct (41-53) % MCV (80-100) fL MCH (26-34) PG MCHC (30-36) % RDW (11.6-14.8) % Plt Count (150-400) X10^3/uL Neut % (Auto) (50-75) % Lymph % (Auto) (25-40) % [place] % (Auto) (3-14) % Eos % (Auto) (2-4) % Baso % (Auto) (0-2) % Neut # (Auto) (0828-2859) /uL Lymph # (Auto) (6131-9812) /uL [place] # (Auto) (0-900) /uL Eos # (Auto) (0-450) /uL Baso # (Auto) (0-100) /uL PT (10.1-12.7) SECONDS INR (0.9-1.3) Sodium (137-145) mmol/L Potassium (3.4-5.1) mmol/L Chloride (98-107) mmol/L Carbon Dioxide (22-32) mmol/L BUN (9-20) mg/dL Creatinine (0.66-1.25) mg/dL Estimated GFR (>60) mL/min BUN/Creatinine Ratio (6-22) Glucose (80-110) mg/dL Calcium (8.4-10.2) mg/dL Total Bilirubin (0.2-1.3) mg/dL AST (17-59) IU/L ALT (21-72) IU/L Alkaline Phosphatase (38-126) U/L Total Creatine Kinase 55 (55-170) U/L CK-MB (CK-2) TNP CK-MB (CK-2) Rel Index TNP Troponin I < 0.012 (0.01-0.034) ng/mL B-Natriuretic Peptide (<100) Total Protein (6.3-8.2) g/dL Albumin (3.5-5.0) g/dL Globulin (1.7-4.1) g/dL Albumin/Globulin Ratio (1.0-2.8) Amylase (30-110) U/L Lipase (23-300) U/L Urine Dip Bedside Urine Glucose Negative Bedside Urine Bilirubin - Negative Bedside Urine Ketone +/- 5 Urine Specific [place] 1.030 Bedside Urine Occult Blood - Negative Bedside Urine pH 5.5 Bedside Urine Protein +/- 15 Bedside Urine Urobilinogen +/- 1mg Bedside Urine Nitrite - Negative Bedside Urine Leukocytes - Negative Esterase Discharge Plan Departure Patient Disposition: Admitted as Observation Clinical Impression: Weakness Discharge Date/Time: 03/09/19 18:55 Interventions: ED Discharge Assessment Last Done: 03/09/19 19:12 Admit Date/Time: 03/09/19 17:54 Admit Provider: Veronica Krishnamurthy <Armida Stockton DO - Last Filed: 03/11/19 07:51> Cosign ED Attending Cosignature Attestation: I was immediately available in the department for consultation, case was discussed. labs, imaging reviewed. Patient evaluated by PT and failed ambulation testing. Observation under hospitalist. This documentation has been reviewed and I agree with assessment and plan. Supervised by Armida Stockton,
--- NOTE | 2019-03-09 12:26 | DI.CT.S_ITS ---
PROCEDURE: CT HEAD/BRAIN WO CON INDICATIONS: fall TECHNIQUE: Noncontrast 4.5 mm thick angled axial sections acquired from the foramen magnum to the vertex, with coronal and sagittal reformats. For radiation dose reduction, the following was used: automated exposure control, adjustment of mA and/or kV according to patient size. COMPARISON: [facility], MR, MR BRAIN WO CON, 09/05/2016, 13:32. [facility], CT, CT HEAD/BRAIN WO CON, 07/27/2018, 19:26. FINDINGS: Image quality: Excellent. CSF spaces: Basal cisterns are patent. No extra-axial fluid collections. The ventricles are symmetric in shape and moderately enlarged, stable. Brain: No intracranial bleeds or masses. There is cerebral volume loss for age, with resultant ventricular and sulcal prominence. There are periventricular and deep white matter chronic small vessel ischemic changes. There is intracranial internal carotid artery atherosclerosis. Skull and face: Calvarium and visualized facial bones appear intact, without suspicious lesions. Sinuses: Visualized sinuses and mastoids are clear. IMPRESSION: 1. No CT evidence of acute intracranial trauma. 2. Mild to moderate hydrocephalus, out of proportion for degree of cerebral cortical atrophy. This is stable compared to the prior studies. Dictated by: Fidelina Valdivia M.D. on 03/09/2019 at 13:08 Approved by: Fidelina Valdivia M.D. on 03/09/2019 at 13:11
[2019-03-09] MEDS: ALBUTEROL/IPRATROPIUM 3 ML AMPUL INH (12:39)
[2019-03-09 12:49] LABS: Add Manual Diff / Slide Review NO; Basophils Absolute Auto 0 /uL (0-100); Basophils Percent Auto 0.7 % (0-2); Eosinophils Absolute Auto 500 /uL (0-450); Eosinophils Percent Auto 7.8 % (2-4); Hematocrit 41.9 % (41-53); Hemoglobin 13.6 g/dL (13.5-17.5); Lymphocytes Absolute Auto 1100 /uL (1100-4500); Lymphocytes Percent Auto 16.4 % (25-40); Mean Corpuscular HGB Conc 32.5 % (30-36); Mean Corpuscular Hemoglobin 27.4 PG (26-34); Mean Corpuscular Volume 84.4 fL (80-100); Monocytes Absolute Auto 600 /uL (0-900); Monocytes Percent Auto 8.6 % (3-14); Neutrophils Absolute Auto 4300 /uL (1500-7000); Neutrophils Percent Auto 66.5 % (50-75); Platelet Count 270 X10^3/uL (150-400); Red Blood Cell Count 4.96 X10^6/uL (4.5-5.9); Red Cell Distribution Width 14.3 % (11.6-14.8); White Blood Cell Count 6.4 X10^3/uL (4.5-11.0)
[2019-03-09 12:54] LABS: INR 1.1 (0.9-1.3); Prothrombin Time 12.9 SECONDS (10.1-12.7)
[2019-03-09 12:59] LABS: Alanine Aminotransferase 14 IU/L (21-72); Albumin 3.6 g/dL (3.5-5.0); Albumin Globulin Ratio 1.2 (1.0-2.8); Alkaline Phosphatase 98 U/L (38-126); Amylase 69 U/L (30-110); Aspartate Aminotransferase 17 IU/L (17-59); BUN Creatinine Ratio 12.2 (6-22); Bilirubin Total 0.4 mg/dL (0.2-1.3); Blood Urea Nitrogen 11 mg/dL (9-20); Calcium 9.1 mg/dL (8.4-10.2); Carbon Dioxide 29 mmol/L (22-32); Chloride 103 mmol/L (98-107); Creatine Kinase 54 U/L (55-170); Estimated Glomerular Filt Rate > 60.0 mL/min (>60); Globulin 2.9 g/dL (1.7-4.1); Glucose 92 mg/dL (80-110); HEMOLYSIS < 15 (0-50); Lipase 89 U/L (23-300); Potassium 4.4 mmol/L (3.4-5.1); Sodium 138 mmol/L (137-145); Total Protein 6.5 g/dL (6.3-8.2)
[2019-03-09 13:09] LABS: B Type Natriuretic Peptide < 100 (<100)
[2019-03-09 13:10] LABS: Troponin I < 0.012 ng/mL (0.01-0.034)
[2019-03-09] MEDS: SODIUM CHLORIDE 0.9% 1,000 ML 1000 ML IV (14:13)
--- NOTE | 2019-03-09 16:00 | PT.IIE ---
Physical Therapy Inpatient Evaluation/Re-Eval M1 PT/OT-IP Prior Functional Status Start: 03/09/19 17:32 Freq: Status: Active Protocol: Document 03/09/19 16:00 AB (Rec: 03/09/19 17:52 AB [id number]) Medical Review Prior Functional Status Medical History Reviewed Yes Communication able to make needs known Mobility and Gait pt has Alzheimer's dementia per spouse. Information regarding house set up and PLOF provided by pt's spouse. Pt was modified independent with mobility and ambulation using FWW. Spouse stated that pt has been getting weak. Activities of Daily Living and IADL's spouse assists pt with showers and occasionally with putting socks/shoes on Social History Household Members spouse Living Arrangements House Number of Floors (Floors) One Floor Number of Stairs To Enter/Railing? 2 steps with bilateral rails Home Environment Standard Height Toilet Tub/Shower Home Equipment Front Wheel Walker Four Wheel Walker Shower Seat with Backrest Hand Held Shower Grab Bars In Shower M2 PT-IP Current Condition Start: 03/09/19 17:32 Freq: Status: Active Protocol: Document 03/09/19 16:00 AB (Rec: 03/09/19 17:52 AB [id number]) Physical Therapy Current Condition Current Condition Evaluation Date 03/09/19 Treatment Diagnosis s/p fall; generalized weakness ; difficulty in walking Onset Date 03/09/19 Precautions Other Precautions falls M3 PT-IP Subjective Start: 03/09/19 17:32 Freq: Status: Active Protocol: Document 03/09/19 16:00 AB (Rec: 03/09/19 17:52 AB [id number]) Subjective Physical Therapy Visit Type Type Initial Evaluation Visit Start Time 16:00 Visit Stop Time 16:40 Total Visit Minutes 40 Number of PHONE MANAGER Visits 0 Physical Therapy Visit Comments Patient Comments spouse present during PT session Therapy Pain Assessment Pain Present Pain Present Denied Pain M4 PT-IP Mobility and Gait Start: 03/09/19 17:32 Freq: Status: Active Protocol: Document 03/09/19 16:00 AB (Rec: 03/09/19 17:52 AB [id number]) PT-Bed Mobility Assessment Supine to Sit Supine to Sit Contact Guard Assistance Minimal Assistance Sit to Supine Sit to Supine Standby Assistance PT-Transfer Assessment Sit to and From Stand Sit to and from Stand Standby Assistance Minimal Assistance Equipment Transfer Assistive Device Gait Belt Front Wheeled Walker Orthotic/Prosthetic Devices or Brace: No Comments Mobility Comments pt completed sit t stand min A and cues. presents with increase bilateral knee flexion during standing. pt completed bed mobility supine <>sit SBA with HOB elevated. pt was only sitting of ~ 2 min and stated that he has to lay back down due to c /o feeling tired. after a few minutes rest, pt sat up again SBA. after ambulation, pt requested to lay back down and completed SBA with sit to supine. pt positioned way down and bed and instructed to scoot up but unable. instructed pt to sit back up again and pt requiring min A with supine to sit. positioned pt in bed after PT session. call light and table placed within reach. Left pt with spouse in room. Gait Assessment Gait Gait Assistance Required: Moderate Assistance Distance (Feet) 15 Able to Maintain Weight Bearing Status Yes During Gait Assistive Devices Assistive Device Gait Belt Front Wheeled Walker Orthotic/Prosthetic Devices or Brace: No Gait Deviations General Gait Pattern Ataxic Decreased Stride Length Decreased Feet Clearance Flexed Trunk Narrow Based Gait Step-to Gait Factors Limiting Gait Function Factors Limiting Gait Function Decreased Activity Tolerance Decreased Sensation Decreased Strength Difficulty Following Directions Incoordination Poor Balance Poor Safety Awareness Comments Gait Comments pt ambulated using FWW ~ 15 ft mod A and max cues, presents with ataxic gait with decrease MADELINE and increase bilateral knee flexion and stooped posture. pt also has freezing episodes during ambulation requiring verbal and tactile cues to keep walking. also noted slight bilateral knee buckling and shaking after first few feet of ambulation pt requested to go back to bed and stated that he feels weak and unable to ambulate further. PT-Balance Assessment Sitting Balance and Reactions Static Sitting Balance Ability Good Dynamic Sitting Balance Ability Fair Standing Balance and Reactions Static Standing Balance Ability Fair Dynamic Standing Balance Ability Poor Device Used FWW M5 PT-IP Objective Assessments Start: 03/09/19 17:32 Freq: Status: Active Protocol: Document 03/09/19 16:00 AB (Rec: 03/09/19 17:52 AB [id number]) Orientation Orientation/Cognition Level of Alertness Alert Orientation Name Safety Awareness Decreased Safety Awareness Memory Description Short Term Impaired Penitentiary Impaired Gross Range of Motion Lower Extremity ROM Assessment Within Functional Limits Strength Lower Extremity Strength Assessment Bilaterally Impaired Hip 4-/5 Knee 4-/5 Coordination Assessment Gross Coordination Gross Coordination WNL Sensation Assessment Sensation Light Touch Impaired Proprioception (Position) Impaired M6 PT-IP Treatment Start: 03/09/19 17:32 Freq: Status: Active Protocol: Document 03/09/19 16:00 AB (Rec: 03/09/19 17:52 AB [id number]) Physical Therapy Treatment Education Education Provided Safety M7 PT-IP Assessment and Plan Start: 03/09/19 17:32 Freq: Status: Active Protocol: Document 03/09/19 16:00 AB (Rec: 03/09/19 17:52 AB [id number]) PT Summary Assessment and Plan Potential Rehabilitation Potential Fair Status of Condition at Evaluation Evolving Summary Impairments ROM Strength Balance Coordination Sensation Tone Cognition Bed Mobility Transfers Gait Activity Tolerance Assessment Summary pt presents with decrease activity tolerance affecting mobility and independence. pt presents with generalized weakness and spouse stated that she will not be able to assist pt at this time. pt initially was able to ambulate but with increasing unsteadiness after first few feet of ambulation with slight knee buckling and shaking. pt is a high risk of falls at this time and is not safe to go home and will require SNF rehab to improve strength and mobility. Goals Bed Mobility Goal Independent Transfer Goal Standby Assistance Front Wheeled Walker Gait Goal Standby Assistance Front Wheel Walker Gait Distance 100 Other Goals up/down 2 steps using bilateral rails CGA Days to Meet Goals 10 Frequency of Treatment Frequency Of Treatment Twice a Day Treatment Plan Physical Therapy Treatment Plan Bed Mobility Training Transfer Training Gait Training Therapeutic Exercise Balance Retraining Discharge Planning Hot or Cold Pack Neuromuscular Re-ed Coordination Retraining Manual Therapy Other Recommendations and Next Treatment ambulation Focus Recommendations To Nursing Amount of Assist Needed 2 Person Assist Discharge Recommendations PT Discharge Recommendations SNF Rehab
--- NOTE | 2019-03-09 16:16 | PC.NURSE ---
Performed orthostatic vital signs on patient. He required significant assistance to get from supine to sitting. Was able to stand with walker, but had to sit down after less than a minute due to legs feeling weak.
[2019-03-09 16:45] LABS: Creatine Kinase 55 U/L (55-170)
[2019-03-09 16:58] LABS: Troponin I < 0.012 ng/mL (0.01-0.034)
--- NOTE | 2019-03-09 19:26 | PC.NURSE ---
1900- Pt arrived to room 222 from ED via bed. A/O, but only to self, , president, and this place is a rehab. Hx Dementia and COPD. 94%RA, denies SOB. BT+ denies nausea. Denies pain. 2PA FWW to BSC and urinal. Multiple scratches to wrists forearms from recent fall, and pt reports some have been there for a long time. , Ricarda Farrell, will be back this evening. Provided 1/2 sand, coffee, and water.
--- NOTE | 2019-03-09 20:30 | PM.HP.1 ---
History of Present Illness Date Patient Seen: 03/09/19 Time Patient Seen: 20:11 Chief complaint: Fall Narrative: Mr. Nathaniel Regan is an 84-year-old male with a history significant for past smoker, dementia, depression and gout who presents to the emergency department today via EMS generalized weakness. The patient had recently a retirement facility for respite care. The patient routinely lives at home his who is his caregiver. The patient is a poor historian related to impaired memory. His reports that he had fall 1 and half days ago and the patient had been sleeping floor since his could not get him. The patient does report feeling sluggish and has mild dyspnea on exertion. He denies any trauma related to the fall with no pain or injuries has an abrasion on his left wrist. He denies complaints of fevers or chills and reports no chest pain or palpitations. He endorses mild shortness of breath with activity but denies cough but states he feels his chest ?rattling?. He has no complaints of abdominal pain, nausea vomiting, heartburn or diarrhea. He does state that he has not had a bowel movement in a day or 2. He denies joint or muscle pains. In the ER the patient is found to be afebrile with a temperature of 98.2?, heart rate of 54, blood pressure 157/71 with respirations of 19 saturating 94% on room air. The patient had an x-ray taken shows changes consistent with COPD and emphysema. Had a CT was completed which finds cerebral volume loss for age, small vessel ischemic changes and intracranial internal carotid artery atherosclerosis but no acute changes and intact calvarium. Twelve lead EKG finds sinus bradycardia without ectopy, right bundle branch block with left anterior fascicular block, no ST or T-wave changes. On on laboratory analysis he has normal CBC as well as CMP. His coags demonstrate slightly elevated PT at 12.9, his cardiac markers of BNP CK and troponin are all within normal range. The patient is admitted to the hospital for generalized weakness and fall. Patient History Medical History COPD (chronic obstructive pulmonary disease) (Acute) Dementia (Acute) Depression (Acute) Emphysema lung (Acute) Gout (Acute) Presbycusis of both ears (Acute) Psoriasis (Acute) Surgical History History of appendectomy (Acute) History of right cataract extraction (Acute) History of tonsillectomy (Acute) Social History household members: spouse Smoking Status: Former smoker Tobacco: How many years used: 40 Family & Social History Social History: household members spouse Prior Living Arrangements House Safety & Behavioral: Feels Safe in Current Yes Environment Been Physically Hurt or No Threatened By a Person Suicidal Ideation Description None Suicide Plan Description No Plan Tobacco & Substance use: Smoking Status Former smoker alcohol intake frequency 0-2 drinks per day Substance Use Type does not use Comment: The patient has been living at home with his who is his primary caregiver. He had recent stay in retirement facility for respite care. Patient's is not available to substantiate history however information obtained from the patient indicates that his father from lung cancer in his mother coronary artery disease. He has 1 sister whom he reports is in good health. 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 Smoking: Patient is a former smoker, unable to clarify pack year smoking history. Alcohol: Patient reports consuming occasional alcohol. Substance use: Patient denies herbal or cannabis products. Advanced directives: The patient's is not available to review code status however patient states that he his have agreed on doing what is necessary to keep him going but that he does not want long-term life support. At this time the patient will be a FULL CODE. His is his surrogate decision maker. Meds Home Medications Medication Instructions Recorded Confirmed Type donepezil [Aricept] 2 tab PO QPM #0 10/04/17 03/09/19 History fluoxetine 20 mg PO QDAY #0 10/04/17 03/09/19 History latanoprost 1 drp EYE-BOTH BEDTIME 07/21/18 03/09/19 History memantine [Namenda] 10 mg PO BID 07/21/18 03/09/19 History salmeterol [Serevent Diskus] 1 inh INHALATION BID 07/21/18 03/09/19 History ergocalciferol (vitamin D2) 1 cap PO QWEEK 07/27/18 03/09/19 History [Vitamin D2] cyanocobalamin (vitamin B-12) 1,000 mcg PO DAILY 03/09/19 03/09/19 History dorzolamide 1 drp OPHTHALMIC (EYE) TID 03/09/19 03/09/19 History Allergies Allergy/AdvReac Type Severity Reaction Status Date / Time No Known Drug Allergies Allergy Verified 03/09/19 12:10 Review of Systems Review of Systems All systems reviewed & are unremarkable except as noted in HPI and below (ROS limited to present only.) and unobtainable due to mental condition (Impaired memory, unable to provide historical information.) Exam Vital Signs (past 8 hours): - 03/09/19 12:40 03/09/19 13:35 03/09/19 14:30 Temperature Pulse Rate 64 62 60 Pulse Rate [Orthostatic Lying] Pulse Rate [Orthostatic Sitting] Pulse Rate [Orthostatic Standing] Respiratory Rate 16 20 18 Blood Pressure Blood Pressure [Left Arm] 134/64 95/55 L Blood Pressure [Orthostatic Lying] Blood Pressure [Orthostatic Sitting] Blood Pressure [Orthostatic Standing] Pulse Oximetry 95 03/09/19 15:30 03/09/19 16:00 03/09/19 16:08 Temperature Pulse Rate 62 71 Pulse Rate [Orthostatic Lying] 62 Pulse Rate [Orthostatic Sitting] 63 Pulse Rate [Orthostatic Standing] 73 Respiratory Rate 21 24 Blood Pressure Blood Pressure [Left Arm] 117/46 L 151/79 H Blood Pressure [Orthostatic Lying] 148/72 H Blood Pressure [Orthostatic Sitting] 151/79 H Blood Pressure [Orthostatic Standing] 173/70 H Pulse Oximetry 94 94 03/09/19 18:17 03/09/19 18:40 03/09/19 19:05 Temperature 98.1 F 98.3 F Pulse Rate 65 58 L 66 Pulse Rate [Orthostatic Lying] Pulse Rate [Orthostatic Sitting] Pulse Rate [Orthostatic Standing] Respiratory Rate 19 22 17 Blood Pressure 140/69 Blood Pressure [Left Arm] 149/68 H 149/68 H Blood Pressure [Orthostatic Lying] Blood Pressure [Orthostatic Sitting] Blood Pressure [Orthostatic Standing] Pulse Oximetry 93 93 94 Oxygen Delivery Method Room Air Narrative Exam Narrative: GENERAL APPEARANCE: well developed, well nourished, BMI 25.4, in no acute distress. HEAD: Normocephalic, atraumatic, no scalp lesions. EYES: pupils equal, round, reactive to light and accommodation, sclera non-icteric, extraocular movement intact without nystagmus. EARS: normal external structures, no ear pain NOSE: sinuses non tender to percussion, no rhinorrhea ORAL CAVITY: mucosa moist without lesions or exudate, palate normal, tongue in midline. THROAT: normal, no erythema, no exudate, pharynx normal, uvula midline. NECK/THYROID: neck supple, no jugular venous distention, no carotid bruit, no thyromegaly, trachea midline. LYMPH NODES: no cervical or supraclavicular lymphadenopathy. SKIN: warm and dry, no suspicious lesions, no rashes, good turgor. HEART: regular rate and rhythm, S1-S2 without murmur, no rubs or gallops, brisk capillary refill, no edema LUNGS: Breath sounds with low-pitched wheeze left chest, no coarseness crackles, no cough present CHEST: Symmetrical movement, no accessory muscle use, no pain to AP and lateral compression. ABDOMEN: Soft, no distention, no epigastric or abdominal tenderness on palpation, no guarding or peritoneal signs, no organomegaly, no flank or suprapubic tenderness, active bowel tones. BACK: Normal curvature, nontender to palpation, no CVA tenderness on percussion EXTREMITIES: Abrasion dorsal aspect left wrist, moves all extremities, no joint pain, strength is 5/5 and symmetrical, well perfused. NEUROLOGIC: AAO to person place and location, month and year, impaired short-term an intermediate recall, cranial nerves II-XII grossly intact , sensory exam intact to light touch, hearing grossly normal to speech. PSYCH: alert, cooperative and gracious, impaired recall, stable mood with congruent affect Objective Labs Result Diagrams: 03/09/19 12:34 03/09/19 12:34 Labs: Laboratory Results - last 24 hr 03/09/19 03/09/19 03/09/19 12:34 12:34 12:34 WBC 6.4 RBC 4.96 Hgb 13.6 Hct 41.9 MCV 84.4 MCH 27.4 MCHC 32.5 RDW 14.3 Plt Count 270 Neut % (Auto) 66.5 Lymph % (Auto) 16.4 L [place] % (Auto) 8.6 Eos % (Auto) 7.8 H Baso % (Auto) 0.7 Neut # (Auto) 4300 Lymph # (Auto) 1100 [place] # (Auto) 600 Eos # (Auto) 500 H Baso # (Auto) 0 PT 12.9 H INR 1.1 Sodium 138 Potassium 4.4 Chloride 103 Carbon Dioxide 29 BUN 11 Creatinine 0.90 Estimated GFR > 60.0 BUN/Creatinine Ratio 12.2 Glucose 92 Calcium 9.1 Total Bilirubin 0.4 AST 17 ALT 14 L Alkaline Phosphatase 98 Total Creatine Kinase 54 L CK-MB (CK-2) TNP CK-MB (CK-2) Rel Index TNP Troponin I < 0.012 B-Natriuretic Peptide < 100 Total Protein 6.5 Albumin 3.6 Globulin 2.9 Albumin/Globulin Ratio 1.2 Amylase 69 Lipase 89 03/09/19 16:23 WBC RBC Hgb Hct MCV MCH MCHC RDW Plt Count Neut % (Auto) Lymph % (Auto) [place] % (Auto) Eos % (Auto) Baso % (Auto) Neut # (Auto) Lymph # (Auto) [place] # (Auto) Eos # (Auto) Baso # (Auto) PT INR Sodium Potassium Chloride Carbon Dioxide BUN Creatinine Estimated GFR BUN/Creatinine Ratio Glucose Calcium Total Bilirubin AST ALT Alkaline Phosphatase Total Creatine Kinase 55 CK-MB (CK-2) TNP CK-MB (CK-2) Rel Index TNP Troponin I < 0.012 B-Natriuretic Peptide Total Protein Albumin Globulin Albumin/Globulin Ratio Amylase Lipase Assessment & Plan Assessment & Plan narrative: The patient is admitted to the hospital for generalized weakness and fall with inability to ambulate without assistance. 1. Acute Generalized weakness, present on admission -patient sustained a ground level fall at home with no trauma, no loss consciousness no neck or back pain. -the patient's was unable to get him up therefore slept on floor for 1-1/2 days. -patient generalized weakness of lower extremities, no neurological deficits or drift, rapid alternating movements intact. -physical and occupational therapy to evaluate and treat. 2. Chronic obstructive pulmonary disease, stable -patient complains of mild dyspnea on exertion but no shortness of breath at rest. History of past smoking unable to clarify pack year history. -on admission patient's respiratory rate of 19 with an oxygen saturation 94% on air. -patient has emphysema changes on chest x-ray -patient received a DuoNeb treatment in the emergency department. -continue home medication with salmeterol inhaler 1 puff twice daily. -DuoNeb every 6 hours as needed while awake. -albuterol up to every 2 hours as needed while awake. 3. Dementia, stable -patient demonstrates impaired short-term an intermediate recall. -patient without behavioral manifestations and is quite gracious and pleasant. -will continue patient's home medications of donepezil 10 mg and memantine 10 mg daily and fluoxetine 20 mg daily The patient is admitted to the hospital due to the severity of the symptoms and risk for complications and/or adverse events. Patient is admitted as observation with expected length stay less than 2 midnights. Quality VTE Deep Vein Thrombosis/Pulmonary Embolism Present on Admission: No
[2019-03-09] MEDS: ALBUTEROL 2.5 MG/3 ML NEB (ADULT) INH (22:03)
[2019-03-09] MEDS: SALMETEROL 50 MCG DISKUS 1 PUFF INH (22:03)
[2019-03-09] MEDS: DONEPEZIL 5 MG TABLET 10 MG PO (22:07)
[2019-03-09] MEDS: MEMANTINE HCL 5 MG TABLET 10 MG PO (22:07)
[2019-03-09] MEDS: LATANOPROST 0.005% OPHTH 2.5 ML 1 DROPS EYE-BOTH (22:08)
[2019-03-09] MEDS: DORZOLAMIDE 2% OPHTH 10 ML 1 DROPS EYE-BOTH (22:08)
[2019-03-10] VITALS (8 sets, daily range): BP systolic 137–151; BP diastolic 67–79; PULSE 53–67; RESP 16–20; TEMP 36.3–36.5; O2SAT 96–98
[2019-03-10] MEDS: ALBUTEROL/IPRATROPIUM 3 ML AMPUL INH ×3 (05:50→17:40)
[2019-03-10] MEDS: SALMETEROL 50 MCG DISKUS 1 PUFF INH ×2 (05:50→17:40)
[2019-03-10] MEDS: FLUoxetine 20 MG CAPSULE PO (10:16)
[2019-03-10] MEDS: ENOXAPARIN 40 MG/0.4 ML SYRINGE SUBCUT (10:16)
[2019-03-10] MEDS: DORZOLAMIDE 2% OPHTH 10 ML 1 DROPS EYE-BOTH ×3 (10:16→23:16)
[2019-03-10] MEDS: MEMANTINE HCL 5 MG TABLET 10 MG PO ×2 (10:23→23:15)
--- NOTE | 2019-03-10 11:06 | PT.IPTN ---
Physical Therapy Treatment Note M2 PT-IP Current Condition Start: 03/09/19 17:32 Freq: Status: Active Protocol: Document 03/09/19 16:00 AB (Rec: 03/09/19 17:52 AB [id number]) Physical Therapy Current Condition Current Condition Evaluation Date 03/09/19 Treatment Diagnosis s/p fall; generalized weakness ; difficulty in walking Onset Date 03/09/19 Precautions Other Precautions falls M3 PT-IP Subjective Start: 03/09/19 17:32 Freq: Status: Active Protocol: Document 03/10/19 10:59 SA (Rec: 03/10/19 11:06 SA [id number]) Subjective Physical Therapy Visit Type Type Treatment Note Visit Start Time 09:42 Visit Stop Time 10:08 Total Visit Minutes 26 Number of APPLICATIONS SUPPORT LEAD Visits 1 Physical Therapy Visit Comments Patient Comments Pt up in chair and agreeable to PT. Patient Goals To eventually go home to and cat. Therapy Pain Assessment Pain When Pain Assessed At Rest Pain Present Pain Present Denied Pain M4 PT-IP Mobility and Gait Start: 03/09/19 17:32 Freq: Status: Active Protocol: Document 03/10/19 10:59 SA (Rec: 03/10/19 11:06 SA [id number]) PT-Transfer Assessment Sit to and From Stand Sit to and from Stand Standby Assistance Contact Guard Assistance 1 Person Assistance Equipment Transfer Assistive Device Gait Belt Front Wheeled Walker Orthotic/Prosthetic Devices or Brace: No Transfers Transfer Destination Chair Toilet Transfer Technique Stand Step Pivot Transfer Ability Level of Assist Contact Guard Assistance Comments Mobility Comments Pt CGA with stand pivot txs on /off toilet and chair with FWW and cues for safety. Completed several sit to stands with focus and safety and UE use. Gait Assessment Gait Gait Assistance Required: Minimum Assistance Distance (Feet) 25 Able to Maintain Weight Bearing Status Yes During Gait Assistive Devices Assistive Device Gait Belt Front Wheeled Walker Orthotic/Prosthetic Devices or Brace: No Gait Deviations General Gait Pattern Ataxic Decreased Stride Length Decreased Feet Clearance Flexed Trunk Narrow Based Gait Step-to Gait Factors Limiting Gait Function Factors Limiting Gait Function Decreased Activity Tolerance Decreased Sensation Decreased Strength Difficulty Following Directions Incoordination Poor Balance Poor Safety Awareness Comments Gait Comments Walked to/from bathroom and around room with FWW and Min A , pt with B short steps, flexed posture and shuffling gait pattern, able to correct breifly wiht cues but quickly reverts back. 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 Gross Range of Motion Lower Extremity ROM Assessment Within Functional Limits Strength Lower Extremity Strength Assessment Bilaterally Impaired Hip 4-/5 Knee 4-/5 Coordination Assessment Gross Coordination Gross Coordination WNL Sensation Assessment Sensation Light Touch Impaired Proprioception (Position) Impaired M6 PT-IP Treatment Start: 03/09/19 17:32 Freq: Status: Active Protocol: Document 03/10/19 10:59 SA (Rec: 03/10/19 11:06 SA [id number]) Physical Therapy Treatment Exercises Exercises Ankle Pumps Gluteal Sets Quad Sets Seated Knee Flexion/Extension Education Education Provided Safety Other Treatments Other Treatment Performed Sit to stand training and standing postural correction at FWW. M7 PT-IP Assessment and Plan Start: 03/09/19 17:32 Freq: Status: Active Protocol: Document 03/10/19 10:59 SA (Rec: 03/10/19 11:06 SA [id number]) PT Summary Assessment and Plan Summary Impairments ROM Strength Balance Coordination Sensation Tone Cognition Bed Mobility Transfers Gait Activity Tolerance Assessment Summary Pt progressing but continues to demonstrate poor activity tolerance and rapid fatigue. Generally poor carry over with safety training. Frequency of Treatment Frequency Of Treatment Twice a Day Treatment Plan Physical Therapy Treatment Plan Bed Mobility Training Transfer Training Gait Training Therapeutic Exercise Balance Retraining Discharge Planning Hot or Cold Pack Neuromuscular Re-ed Coordination Retraining Manual Therapy Recommendations To Nursing Amount of Assist Needed 2 Person Assist Discharge Recommendations PT Discharge Recommendations SNF Rehab
[2019-03-10] MEDS: SODIUM CHLORIDE 0.9% FLUSH 10 ML IV ×2 (11:26→21:00)
--- NOTE | 2019-03-10 13:57 | PT.IPTN ---
Physical Therapy Treatment Note M2 PT-IP Current Condition Start: 03/09/19 17:32 Freq: Status: Active Protocol: Document 03/09/19 16:00 AB (Rec: 03/09/19 17:52 AB [id number]) Physical Therapy Current Condition Current Condition Evaluation Date 03/09/19 Treatment Diagnosis s/p fall; generalized weakness ; difficulty in walking Onset Date 03/09/19 Precautions Other Precautions falls M3 PT-IP Subjective Start: 03/09/19 17:32 Freq: Status: Active Protocol: Document 03/10/19 13:45 SA (Rec: 03/10/19 13:57 SA [id number]) Subjective Physical Therapy Visit Type Type Treatment Note Visit Start Time 13:10 Visit Stop Time 13:40 Total Visit Minutes 30 Notes present for session. Number of [employer] C DEVELOPER Visits 2 Physical Therapy Visit Comments Patient Comments Pt up in chair and agreeable to PT. Therapy Pain Assessment Pain When Pain Assessed During Mobility Pain Present Pain Present Denied Pain M4 PT-IP Mobility and Gait Start: 03/09/19 17:32 Freq: Status: Active Protocol: Document 03/10/19 13:45 SA (Rec: 03/10/19 13:57 SA [id number]) PT-Transfer Assessment Sit to and From Stand Sit to and from Stand Contact Guard Assistance 1 Person Assistance Equipment Transfer Assistive Device Gait Belt Front Wheeled Walker Orthotic/Prosthetic Devices or Brace: No Transfers Transfer Destination Bed Chair Transfer Technique Stand Step Pivot Transfer Ability Level of Assist Contact Guard Assistance Minimal Assistance 1 Person Assistance Comments Mobility Comments Pt with increased fatigue this PM, required Min A for safe transfers back to EOB and chair, tends to put FWW aside and fall into chair sideways. Continued education for safe transfers with limited carry over. Gait Assessment Gait Gait Assistance Required: Minimum Assistance Distance (Feet) 30 Able to Maintain Weight Bearing Status Yes During Gait Assistive Devices Assistive Device Gait Belt Front Wheeled Walker Orthotic/Prosthetic Devices or Brace: No Gait Deviations General Gait Pattern Ataxic Decreased Stride Length Decreased Feet Clearance Flexed Trunk Narrow Based Gait Step-to Gait Factors Limiting Gait Function Factors Limiting Gait Function Decreased Activity Tolerance Decreased Sensation Decreased Strength Difficulty Following Directions Incoordination Poor Balance Poor Safety Awareness Comments Gait Comments Gait training out into marquez with pt becoming very fatigued and needing Min-Mod A to get seated at EOB. Pt with shuffling, forward flexed gait pattern with decreasing motor control as he fatigues. Pt high risk for falls and poor safety awareness. M5 PT-IP Objective Assessments Start: 03/09/19 17:32 Freq: Status: Active Protocol: Document 03/09/19 16:00 AB (Rec: 03/09/19 17:52 AB [id number]) Orientation Orientation/Cognition Level of Alertness Alert Orientation Name Safety Awareness Decreased Safety Awareness Memory Description Short Term Impaired Atmospheric Physicist Impaired Gross Range of Motion Lower Extremity ROM Assessment Within Functional Limits Strength Lower Extremity Strength Assessment Bilaterally Impaired Hip 4-/5 Knee 4-/5 Coordination Assessment Gross Coordination Gross Coordination WNL Sensation Assessment Sensation Light Touch Impaired Proprioception (Position) Impaired M6 PT-IP Treatment Start: 03/09/19 17:32 Freq: Status: Active Protocol: Document 03/10/19 13:45 SA (Rec: 03/10/19 13:57 SA [id number]) Physical Therapy Treatment Exercises Exercises Ankle Pumps Gluteal Sets Quad Sets Seated Knee Flexion/Extension Education Education Provided Safety Other Treatments Other Treatment Performed Discussion with patient and regarding SNF d/c and continued rehab with focus on safety and muscle memory vs new learning. M7 PT-IP Assessment and Plan Start: 03/09/19 17:32 Freq: Status: Active Protocol: Document 03/10/19 13:45 SA (Rec: 03/10/19 13:57 SA [id number]) PT Summary Assessment and Plan Summary Impairments ROM Strength Balance Coordination Sensation Tone Cognition Bed Mobility Transfers Gait Activity Tolerance Assessment Summary Pt with continued poor safety and activity tolerance. Appropriate for SNF d/c for continued safety and functional mobility training. Frequency of Treatment Frequency Of Treatment Twice a Day Treatment Plan Physical Therapy Treatment Plan Bed Mobility Training Transfer Training Gait Training Therapeutic Exercise Balance Retraining Discharge Planning Hot or Cold Pack Neuromuscular Re-ed Coordination Retraining Manual Therapy Recommendations To Nursing Amount of Assist Needed 2 Person Assist Discharge Recommendations PT Discharge Recommendations SNF Rehab
--- NOTE | 2019-03-10 14:55 | CM.DANOTE ---
Addendum entered by Bambi Roy LPN 03/10/19 15:56: Spoke now by phone with Ricarda. She expresses her awareness that a d/c will be soon. She says she knows her needs a facility that can better support his needs and she had been looking prior to this but without a full understanding of the facilities and their abilities for care. She says her was given a dx of early Alzheimers dementia about 1 and 1/2 years ago by a neuropsychologist and the dx confirmed in 2nd opinion by neurologist Dr. Sims in [facility]. She has looked into [facility] and [facility] although neither of those offer memory care. She has noted a marked decline in her functional abilities and says she understands that is because even though his muscles may be strong his brain is not giving him the correct signals. She would like consideration of [facility] stay with a transition to appropriate memory care setting. She wondered about [facility]. Says she also has looked at the [facility] and liked that very much. Referral now in to [facility] via Vm and efax. Attempted also to leave a vm with [facility] liaison Mahsa but her vm is full. Will meet Ricarda as planned tomorrow and follow accoringly. Original Note: Discharge Planning/Care Management DCP: assessment: case received, EMR reviewed and met with pt's briefly as she was leaving for a doctor's appt. Agreed to see her tomorrow at 0900 to continue the conversation. Pt is an 84 year old male who admitted yesterday to [facility] of hospitalist team. Dr. Krishnamurthy is following pt today; her note is not yet available. Payer: Medicare and [facility] Medical Admission status: OBS: and in review per [facility] YSABEL Marr with [facility] referral sent today. Pt does carry a dx of dementia. His Ricarda confirms that he has just had a 2 week respite stay at [facility] setting in [place]. She says it did not go as well as she hoped; that he did not mobilize or get much activity and he became much weaker during the stay. He came back home, sustained a fall and is admitted now for assessment of needs and d/c planning assistance. PT did see pt today. OT order is in place but no OT notes thus far. Ricarda says that the PT is recommending snf. Ricarda also confirms she understands that pt is here now under OBS status and that one of the implications of this is that the SNF Medicare benefit is not available to him. She does not indicate that finances would be a barrier to a SNF stay under pvt pay. She does say she does not want pt to return to [facility] as she feels the setting was not appropriate for his needs. Discussed idea of a short snf/pvt pay stay and Medicare B therapy with a transition to a more appropriate [facility] setting post snf and Ricarda very agreeable to continuing this discussion tomorrow. Review of prior stays does not show a recent admission to so cannot access a < 30 days INPT 3 day hospital stay. Plan tomorrow to ask Ricarda about any other hospital stays and also will know EHR decision by then re admission status. P: Meet with 0900 tomorrow, discuss info in Team Rounds and 929 and finalize a safe and appropriate d/c plan for this pt. OF NOTE: stopped in to see pt after Ricarda had left for appt. He was found sitting up in room chair, very pleasant demeanor and smiling but clearly not understanding the specifics of his situation. He is assured that he will be sleeping here tonight and that his will see him later after her appt. Advanced directive, confirm from CLIN[facility] Start: 03/09/19 19:25 Freq: Q24H Status: Active Protocol: Document 03/09/19 19:25 MLA (Rec: 03/09/19 20:34 MLA [id number]) Advance Directive, confirm on record Time 19:00 Person contacted Yong Farrell, Copy received No CM Discharge Assessment Start: 03/10/19 14:53 Freq: Status: Active Protocol: Document 03/10/19 14:53 ITV (Rec: 03/10/19 14:55 ITV [id number]) Discharge Planning Assessment Advance Directives? Yes Advance Directives on File No History Provided By Patient Family Member Medical Record Prior Living Arrangements House Household Members spouse Is patient alert and oriented? No: is alert, has dx of dementia Whiteboard Updated in Patient Room with Yes name and ext. # of Thread Reeler Review Status In Process Next Review Type Continued Stay Review
--- NOTE | 2019-03-10 16:11 | PM.PN.1 ---
Subjective Date Patient Seen: 03/10/19 Interval history: Chart reviewed patient seen and examined. He has no specific complaints. Exam Vital Signs (past 8 hours): - 03/10/19 12:00 03/10/19 12:05 03/10/19 15:25 Temperature 97.6 F 97.7 F Pulse Rate 58 L 56 L 64 Respiratory Rate 20 16 18 Blood Pressure 137/67 137/79 Pulse Oximetry 97 98 98 Fraction of Inspired Oxygen 21 Oxygen Delivery Method Room Air Oxygen Flow Rate 0 Narrative Exam Narrative: Elderly gentleman resting comfortably in no obvious distress Lungs: Clear to auscultation Cardiac exam: Regular rate and rhythm normal S1-S2 Abdomen: Soft and nontender Extremities: No edema Objective Labs Result Diagrams: 03/09/19 12:34 03/09/19 12:34 Labs: Laboratory Results - last 24 hr 03/09/19 16:23 Total Creatine Kinase 55 CK-MB (CK-2) TNP CK-MB (CK-2) Rel Index TNP Troponin I < 0.012 Assessment & Plan (1) Dementia: Problem details: Dementia, chronic, present on admission likely related to his underlying weakness. Current visit: Yes Status: Acute (2) COPD (chronic obstructive pulmonary disease): Problem details: COPD, chronic no active issue Current visit: Yes Status: Acute (3) Weakness: Problem details: Weakness, present on admission. Will continue with PT OT and look for placement at discharge. Current visit: Yes Status: Acute Quality VTE Deep Vein Thrombosis/Pulmonary Embolism Present on Admission: No
--- NOTE | 2019-03-10 17:05 | OT.IP.EVAL ---
Current Diagnoses Unspecified dementia without behavioral disturbance (03/09/19) Chronic obstructive pulmonary disease, unspecified (03/09/19) Weakness (03/09/19) Past Medical History (Last Reviewed 03/09/19 @ 21:09 by LION Barron) COPD (chronic obstructive pulmonary disease) (Acute) Dementia (Acute) Depression (Acute) Emphysema lung (Acute) Gout (Acute) Presbycusis of both ears (Acute) Psoriasis (Acute) Surgical History (Last Reviewed 03/09/19 @ 21:09 by LION Barron) History of appendectomy (Acute) History of right cataract extraction (Acute) History of tonsillectomy (Acute) Occupational Therapy Inpatient Evaluation/Re-Eval M1 PT/OT-IP Prior Functional Status Start: 03/10/19 16:36 Freq: NEEDED Status: Active Protocol: Document 03/10/19 16:36 [facility] (Rec: 03/10/19 17:05 [facility] [id number]) Medical Review Prior Functional Status Medical History Reviewed Yes Communication able to make needs known Mobility and Gait pt has Alzheimer's dementia per spouse. Information regarding house set up and PLOF provided by pt's spouse. Pt was modified independent with mobility and ambulation using FWW. Spouse stated that pt has been getting weak. Activities of Daily Living and IADL's spouse assists pt with showers and occasionally with putting socks/shoes on Social History Household Members spouse Living Arrangements House Number of Floors (Floors) One Floor Number of Stairs To Enter/Railing? 2 steps with bilateral rails Home Environment Standard Height Toilet Tub/Shower Home Equipment Front Wheel Walker Four Wheel Walker Shower Seat with Backrest Hand Held Shower Grab Bars In Shower M2 OT-IP Current Condition Start: 03/10/19 16:36 Freq: Status: Active Protocol: Document 03/10/19 16:36 [facility] (Rec: 03/10/19 17:05 [facility] [id number]) Occupational Therapy Current Condition Current Condition Evaluation Date 03/10/19 Treatment Diagnosis S/P fall ,generalized weakness Diagnosis Onset Date 03/09/19 Weight Bearing Status Weight Bearing Status Weight Bear as Tolerated M3 OT- IP Subjective and Pain Start: 03/10/19 16:36 Freq: Status: Active Protocol: Document 03/10/19 16:36 [facility] (Rec: 03/10/19 17:05 [facility] [id number]) OT- Subjective Occupational Therapy Visit Type Type Initial Evaluation Visit Start Time 15:55 Visit Stop Time 16:15 Total Visit Minutes 20 Occupational Therapy Visit Comments Patient Comments Pt agreeable to get up. Patient/Caregiver Goals Pt realizes that it would be best to go to skilled rehab. OT Pain Assessment Pain When Pain Assessed At Rest Pain Present Pain Present Denied Pain M4 OT- IP ADL's Start: 03/10/19 16:36 Freq: Status: Active Protocol: Document 03/10/19 16:36 [facility] (Rec: 03/10/19 17:05 [facility] [id number]) OT ADL-Grooming General Evaluation Grooming Ability Contact Guard Assistance Areas Needing Assistance Retrieving/Set-up of Grooming Items Comments OT Grooming Comments CGA for balance, pt leans onto the counter for balance while standing with FWW. OT ADL-Oral Care General Eval Oral Care Ability Standby Assistance OT ADL-Dressing General Eval Lower Body Dressing Ability Standby Assistance Contact Guard Assistance Areas Needing Assistance Underpants/Brief Socks Comments OT Dressing Comments CGA for balance while standing to pull up brief over his hips. OT ADL-Toileting General Evaluation Toileting Ability Standby Assistance Comments OT Toileting Comments VC for completeness to wipe. M5 OT- IP IADL's Start: 03/10/19 16:36 Freq: Status: Active Protocol: Document 03/10/19 16:36 [facility] (Rec: 03/10/19 17:05 [facility] [id number]) OT-Instrumental Activities of Daily Living Medication Management Medication Management Caregiver Administers Money Management Money Management Caregiver Provides Assistance Meal Preparation Meal Preparation Caregiver Provides Assist Control Cabinet Assembler Control Cabinet Assembler Caregiver Provides Assist Driving Driving Caregiver Provides Assist M6 OT- IP Functional Cognition Start: 03/10/19 16:36 Freq: Status: Active Protocol: Document 03/10/19 16:36 [facility] (Rec: 03/10/19 17:05 [facility] [id number]) Cognitive Factors Limiting Selfcare Function Cognitive Ability Level of Alertness Alert Patient Orientation Name Attention Span Ability Capable of Focused Attention Capable of Sustained Attention Ability to Follow Commands Able to Follow One Step Commands Memory Description Short Term Impaired Safety Awareness Underestimates Need for Assistance Problem Solving Ability Unable to Identify Errors Needs Assist to Identify Solutions Cognitive Comments Cognitive Assessment Comments Pt needing cues for safety with FWW, use of hands to push up from the armrest of recliner, use of grab bar by toilet. OT- Vision and Hearing OT- Hearing Assessment OT- Hearing Assessment WFL OT- Vision Assessment Visual Acuity Glasses All The Time M7 OT- IP Mobility and Balance Start: 03/10/19 16:36 Freq: Status: Active Protocol: Document 03/10/19 16:36 [facility] (Rec: 03/10/19 17:05 [facility] [id number]) OT-Transfer Assessment Sit to and From Stand Sit to and from Stand Minimal Assistance Transfers Transfer Ability Minimal Assistance Moderate Assistance 1 Person Assistance Technique Transfer Destination Chair Toilet Transfer Technique Stand Step Pivot Devices Transfer Assistive Devices Gait Belt Front Wheeled Walker Comments Mobility Comments As pt tires, FWW gets farther away from him and needs reminders to keep FWW come to him and also to straighten out his legs. OT- Balance Assessment Sitting Balance and Reactions Static Sitting Balance Ability Normal Standing Balance and Reactions Static Standing Balance Ability Fair M8 OT- IP Objective Assessments Start: 03/10/19 16:36 Freq: Status: Active Protocol: Document 03/10/19 16:36 [facility] (Rec: 03/10/19 17:05 [facility] [id number]) OT Gross Range of Motion Upper Extremity Range of Motion Assessment Within Functional Limits OT Strength Comments Strength Comments Grossly WFL for age OT- Coordination Assessment Comments Coordination Comments Pt needing assist to open items for grooming. M9 OT- IP Assessment and Plan Start: 03/10/19 16:36 Freq: Status: Active Protocol: Document 03/10/19 16:36 [facility] (Rec: 03/10/19 17:05 [facility] [id number]) OT Summary Assessment and Plan Potential Rehabilitation Potential Good Analytic Complexity at Evaluation Low Summary OT Impairments Strength Balance Coordination Functional Cognition Functional Mobility Grooming Dressing Toileting Bathing Toilet Transfers Shower Transfers Progress Towards Goals Slow Progress due to Activity Tolerance Slow Progress due to Cognition Assessment Summary Pt low complexity and main barrier is decreased safety awareness, activity tolerance and balance. Pt would benefit from skilled rehab to work on repetition for safety of FWW, come to sit to stand and bed mobility needs in addition for ADl's. Goals Grooming Goal Standby Assistance Dressing Goal Standby Assistance Toileting Goal Standby Assistance Bathing Goal Minimal Assistance Toilet Transfer Goal Standby Assistance Shower Transfer Goal Minimal Assistance Days to Meet Goals 7 Frequency of Treatment Frequency Of Treatment Once a Day Treatment Plan OT Treatment Plan ADL Training Functional Cognition Training Functional Mobility Patient/Family Education Discharge Planning Other Treatment Recommendations and Next FWW safety, shower if Treatment Focus appropriate Discharge Recommendations OT Discharge Recommendations SNF Rehab
[2019-03-10] MEDS: DONEPEZIL 5 MG TABLET 10 MG PO (23:15)
[2019-03-10] MEDS: LATANOPROST 0.005% OPHTH 2.5 ML 1 DROPS EYE-BOTH (23:16)
[2019-03-11] VITALS: BP 149/76; PULSE 70; RESP 18; TEMP 36.2; O2SAT 98
--- NOTE | 2019-03-11 01:24 | PC.NURSE ---
Assumed care of pt at 2300 on 03/10/19. Pt resting in bed during bedside hand-off. Denies pain or discomfort. Pleasant, cooperative but oriented to self only. Reports he is in a rehab facility r/t recent falls. UA needed, all account support rep aware to collect if pt has continent void. Yellow gown provided. SCD's placed on. I.S. and instructions for use given. Pt presently sleeping. Bed alarm on. Door open for close monitoring.
[2019-03-11 04:00] VITALS: BP 154/80; BP 155/100; BP 159/72; PULSE 58; RESP 18; TEMP 36.1; O2SAT 95
[2019-03-11] MEDS: SALMETEROL 50 MCG DISKUS 1 PUFF INH (07:10)
[2019-03-11] MEDS: ALBUTEROL/IPRATROPIUM 3 ML AMPUL INH (07:10)
[2019-03-11 07:21] VITALS: PULSE 54; RESP 16; O2SAT 97
[2019-03-11 08:00] VITALS: BP 145/68; PULSE 65; RESP 16; TEMP 36.4; O2SAT 97
[2019-03-11] MEDS: FLUoxetine 20 MG CAPSULE PO (08:05)
[2019-03-11] MEDS: DORZOLAMIDE 2% OPHTH 10 ML 1 DROPS EYE-BOTH (08:05)
[2019-03-11] MEDS: ENOXAPARIN 40 MG/0.4 ML SYRINGE SUBCUT (08:05)
[2019-03-11] MEDS: MEMANTINE HCL 5 MG TABLET 10 MG PO (08:05)
[2019-03-11] MEDS: SODIUM CHLORIDE 0.9% FLUSH 10 ML IV (08:05)
--- NOTE | 2019-03-11 10:05 | PM.DS.1 ---
History of Present Illness Date Patient Seen: 03/11/19 Chief complaint: Fall Narrative: Mr. Nathaniel Regan is an 84-year-old male with a history significant for past smoker, dementia, depression and gout who presents to the emergency department today via EMS generalized weakness. The patient had recently a [facility] facility for respite care. The patient routinely lives at home his who is his caregiver. The patient is a poor historian related to impaired memory. His reports that he had fall 1 and half days ago and the patient had been sleeping floor since his could not get him. The patient does report feeling sluggish and has mild dyspnea on exertion. He denies any trauma related to the fall with no pain or injuries has an abrasion on his left wrist. He denies complaints of fevers or chills and reports no chest pain or palpitations. He endorses mild shortness of breath with activity but denies cough but states he feels his chest ?rattling?. He has no complaints of abdominal pain, nausea vomiting, heartburn or diarrhea. He does state that he has not had a bowel movement in a day or 2. He denies joint or muscle pains. In the ER the patient is found to be afebrile with a temperature of 98.2?, heart rate of 54, blood pressure 157/71 with respirations of 19 saturating 94% on room air. The patient had an x-ray taken shows changes consistent with COPD and emphysema. Had a CT was completed which finds cerebral volume loss for age, small vessel ischemic changes and intracranial internal carotid artery atherosclerosis but no acute changes and intact calvarium. Twelve lead EKG finds sinus bradycardia without ectopy, right bundle branch block with left anterior fascicular block, no ST or T-wave changes. On on laboratory analysis he has normal CBC as well as CMP. His coags demonstrate slightly elevated PT at 12.9, his cardiac markers of BNP CK and troponin are all within normal range. The patient is admitted to the hospital for generalized weakness and fall. Discharge Providers Date of admission: 03/09/19 17:54 Discharge Date: 03/11/19 Primary care physician: Kenny Bruno MD Consults: 03/09/19 15:44 Consult to Physical Therapy Evaluate & Treat Comment: Physician Instructions: Evaluate and Treat 03/09/19 20:26 Consult to Discharge Planning Routine Comment: Consult to Occupational Therapy Evaluate & Treat Comment: Generalized weakness, fall Physician Instructions: Evaluate and treat Consult to Physical Therapy Evaluate & Treat Comment: Generalized weakness, fall Physician Instructions: Evaluate and Treat 03/09/19 20:29 Consult to Respiratory Therapy Evaluate & Treat Comment: History COPD Physician Instructions: Evaluate and treat 03/10/19 14:43 Consult to Occupational Therapy Evaluate & Treat Comment: Physician Instructions: Evaluate and treat Discharge provider: Veronica Krishnamurthy MD Summary Discharge Diagnosis: 1. Dementia 2. Weakness status post fall\ 3. Depression 4. Gout 5. COPD Hospital Course: Patient was admitted to the hospital following a fall and being down for 1 and half days. He was seen by PT and OT and recommendations were made for him to go to either skilled care or long-term care. Patient had no further events during the hospital stay. He was pleasantly confused but was not combative. He had no specific complaints arrangements were made for him to be discharged and he was discharged home accordingly. Status at Discharge Cognitive/behavioral status at discharge: confused Functional status at discharge: uses cane/walker Overall status at discharge: patient is back to baseline Time Spent with Patient Less than 30 minutes Exam Vital Signs (past 8 hours): - 03/11/19 04:00 03/11/19 07:21 03/11/19 08:00 Temperature 97.0 F L 97.5 F L Pulse Rate 58 L 54 L 65 Respiratory Rate 18 16 16 Blood Pressure 159/72 H 145/68 H Blood Pressure [Orthostatic Lying] 159/72 H Blood Pressure [Orthostatic Sitting] 155/100 H Blood Pressure [Orthostatic Standing] 154/80 H Pulse Oximetry 95 97 97 Fraction of Inspired Oxygen 21 Oxygen Delivery Method Room Air Oxygen Flow Rate 0 Narrative Exam Narrative: Elderly gentleman in no acute distress Lungs: Clear to auscultation Cardiac exam: Regular rate and rhythm normal S1-S2 Abdomen: Soft nontender nondistended Extremities: No edema Objective Labs Result Diagrams: 03/09/19 12:34 03/09/19 12:34 Discharge Plan Discharge Plan Patient Disposition: SNF Transfer to: [facility] Transportation: [facility] I certify the postop hospital [facility] care is medically necessary on a continuing basis for any conditions for which he/ she received care during this hospitalization.: Yes The receiving facility has agreed to accept transfer and provide medical treatment.: Yes Discharge Med Rec/Prescriptions Prescriptions: Continued fluoxetine 20 MG capsule 20 mg PO QDAY Qty: 0 RF: 0 donepezil [Aricept] 10 MG tablet 2 tab PO QPM Qty: 0 RF: 0 latanoprost 0.005 % Drops 1 drp EYE-BOTH BEDTIME RF: 0 Serevent Diskus 50 mcg/dose Blister With Device 1 inh INHALATION BID RF: 0 memantine [Namenda] 10 mg Tablet 10 mg PO BID RF: 0 ergocalciferol (vitamin D2) [Vitamin D2] 50,000 unit capsule 1 cap PO QWEEK RF: 0 dorzolamide 2 % Drops 1 drp ophthalmic (eye) TID RF: 0 cyanocobalamin (vitamin B-12) 1,000 mcg Capsule 1,000 mcg PO DAILY RF: 0 Follow up/Referrals: Kenny Bruno MD [Primary Care Provider] - Provider Discharge Instructions Diet: Diet as Tolerated Liquid consistency: Normal/Thin Food texture: Regular Activity: aS tolerated Special Rehabilitation Services Reason for rehabilitation: Recovery r/t decondition Rehab type: Physical therapy, Occupational therapy and Speech therapy Discharge Data Primary Care Provider: Kenny Bruno V Attending Provider: Veronica Krishnamurthy Admit Date/Time: 03/09/19 17:54 Quality VTE Deep Vein Thrombosis/Pulmonary Embolism Present on Admission: No
--- NOTE | 2019-03-11 10:09 | P.DS_ITS ---
History of Present Illness Date Patient Seen: 03/11/19 Chief complaint: Fall Narrative: Mr. Nathaniel Regan is an 84-year-old male with a history significant for past smoker, dementia, depression and gout who presents to the emergency department today via EMS generalized weakness. The patient had recently a [facility] facility for respite care. The patient routinely lives at home his who is his caregiver. The patient is a poor historian related to impaired memory. His reports that he had fall 1 and half days ago and the patient had been sleeping floor since his could not get him. The patient does report feeling sluggish and has mild dyspnea on exertion. He denies any trauma related to the fall with no pain or injuries has an abrasion on his left wrist. He denies complaints of fevers or chills and reports no chest pain or palpitations. He endorses mild shortness of breath with activity but denies cough but states he feels his chest ?rattling?. He has no complaints of abdominal pain, nausea vomiting, heartburn or diarrhea. He does state that he has not had a bowel movement in a day or 2. He denies joint or muscle pains. In the ER the patient is found to be afebrile with a temperature of 98.2?, heart rate of 54, blood pressure 157/71 with respirations of 19 saturating 94% on room air. The patient had an x-ray taken shows changes consistent with COPD and emph ysema. Had a CT was completed which finds cerebral volume loss for age, small vessel ischemic changes and intracranial internal carotid artery atherosclerosis but no acute changes and intact calvarium. Twelve lead EKG finds sinus bradycardia without ectopy, right bundle branch block with left anterior fascicular block, no ST or T-wave changes. On on laboratory analysis he has normal CBC as well as CMP. His coags demonstrate slightly elevated PT at 12.9, his cardiac markers of BNP CK and troponin are all within normal range. The patient is admitted to the hospital for generalized weakness and fall. Discharge Providers Date of admission: 03/09/19 17:54 Discharge Date: 03/11/19 Primary care physician: Kenny Bruno MD Consults: 03/09/19 15:44 Consult to Physical Therapy Evaluate & Treat Comment: Physician Instructions: Evaluate and Treat 03/09/19 20:26 Consult to Discharge Planning Routine Comment: Consult to Occupational Therapy Evaluate & Treat Comment: Generalized weakness, fall Physician Instructions: Evaluate and treat Consult to Physical Therapy Evaluate & Treat Comment: Generalized weakness, fall Physician Instructions: Evaluate and Treat 03/09/19 20:29 Consult to Respiratory Therapy Evaluate & Treat Comment: History COPD Physician Instructions: Evaluate and treat 03/10/19 14:43 Consult to Occupational Therapy Evaluate & Treat Comment: Physician Instructions: Evaluate and treat Discharge provider: Veronica Krishnamurthy MD Summary Discharge Diagnosis: 1. Dementia 2. Weakness status post fall\ 3. Depression 4. Gout 5. COPD Hospital Course: Patient was admitted to the hospital following a fall and being down for 1 and half days. He was seen by PT and OT and recommendations were made for him to go to either skilled care or long-term care. Patient had no fu rther events during the hospital stay. He was pleasantly confused but was not combative. He had no specific complaints arrangements were made for him to be discharged and he was discharged home accordingly. Status at Discharge Cognitive/behavioral status at discharge: confused Functional status at discharge: uses cane/walker Overall status at discharge: patient is back to baseline Time Spent with Patient Less than 30 minutes Exam Vital Signs (past 8 hours): - 03/11/19 04:00 03/11/19 07:21 03/11/19 08:00 Temperature 97.0 F L 97.5 F L Pulse Rate 58 L 54 L 65 Respiratory Rate 18 16 16 Blood Pressure 159/72 H 145/68 H Blood Pressure [Orthostatic Lying] 159/72 H Blood Pressure [Orthostatic Sitting] 155/100 H Blood Pressure [Orthostatic Standing] 154/80 H Pulse Oximetry 95 97 97 Fraction of Inspired Oxygen 21 Oxygen Delivery Method Room Air Oxygen Flow Rate 0 Narrative Exam Narrative: Elderly gentleman in no acute distress Lungs: Clear to auscultation Cardiac exam: Regular rate and rhythm normal S1-S2 Abdomen: Soft nontender nondistended Extremities: No edema Objective Labs Result Diagrams: 03/09/19 12:34 03/09/19 12:34 Discharge Plan Discharge Plan Patient Disposition: SNF Transfer to: [facility] Transportation: [facility] I certify the postop hospital fdc care is medically necessary on a continuing basis for any conditions for which he/ she received care during this hospitalization.: Yes The receiving facility has agreed to accept transfer and provide medical treatment.: Yes Discharge Med Rec/Prescriptions Prescriptions: Continued fluoxetine 20 MG capsule 20 mg PO QDAY Qty: 0 RF: 0 donepezil [Aricept] 10 MG tablet 2 tab PO QPM Qty: 0 RF: 0 latanoprost 0.005 % Drops 1 drp EYE-BOTH BEDTIME RF: 0 Serevent Diskus 50 mcg/dose Blister With Device 1 inh INHALATION BID RF: 0 memantine [Namenda] 10 mg Tablet 10 mg PO BID RF: 0 ergocalciferol (vitamin D2) [Vitamin D2] 50,000 unit capsule 1 cap PO QWEEK RF: 0 dorzolamide 2 % Drops 1 drp ophthalmic (eye) TID RF: 0 cyanocobalamin (vitamin B-12) 1,000 mcg Capsule 1,000 mcg PO DAILY RF: 0 Follow up/Referrals: Kenny Bruno MD [Primary Care Provider] - Provider Discharge Instructions Diet: Diet as Tolerated Liquid consistency: Normal/Thin Food texture: Regular Activity: aS tolerated Special Rehabilitation Services Reason for rehabilitation: Recovery r/t decondition Rehab type: Physical therapy, Occupational therapy and Speech therapy Discharge Data Primary Care Provider: Kenny Bruno V Attending Provider: Veronica Krishnamurthy Admit Date/Time: 03/09/19 17:54 Quality VTE Deep Vein Thrombosis/Pulmonary Embolism Present on Admission: No
--- NOTE | 2019-03-11 11:23 | PT.IPTN ---
Current Diagnoses Unspecified dementia without behavioral disturbance (03/09/19) Chronic obstructive pulmonary disease, unspecified (03/09/19) Weakness (03/09/19) Physical Therapy Treatment Note M2 PT-IP Current Condition Start: 03/09/19 17:32 Freq: Status: Active Protocol: Document 03/09/19 16:00 AB (Rec: 03/09/19 17:52 AB [id number]) Physical Therapy Current Condition Current Condition Evaluation Date 03/09/19 Treatment Diagnosis s/p fall; generalized weakness ; difficulty in walking Onset Date 03/09/19 Precautions Other Precautions falls M3 PT-IP Subjective Start: 03/09/19 17:32 Freq: Status: Active Protocol: Document 03/11/19 11:14 SA (Rec: 03/11/19 11:23 SA [id number]) Subjective Physical Therapy Visit Type Type Treatment Note Visit Start Time 10:55 Visit Stop Time 11:12 Total Visit Minutes 17 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 Patient Goals To continue therapy at SNF and improve mobility. Therapy Pain Assessment Pain When Pain Assessed During Mobility Pain Present Pain Present Denied Pain M4 PT-IP Mobility and Gait Start: 03/09/19 17:32 Freq: Status: Active Protocol: Document 03/11/19 11:14 SA (Rec: 03/11/19 11:23 SA [id number]) PT-Bed Mobility Assessment Rolling Type of Rolling Roll to Right Level of Assist Contact Guard Assistance Supine to Sit Supine to Sit Contact Guard Assistance Sit to Supine Sit to Supine Contact Guard Assistance Scooting Scooting to Edge of Bed Standby Assistance Scooting Up and Down in Bed Standby Assistance PT-Transfer Assessment Sit to and From Stand Sit to and from Stand Contact Guard Assistance 1 Person Assistance Equipment Transfer Assistive Device Gait Belt Front Wheeled Walker Orthotic/Prosthetic Devices or Brace: No Transfers Transfer Destination Bed Chair Transfer Technique Stand Step Pivot Transfer Ability Level of Assist Contact Guard Assistance 1 Person Assistance Comments Mobility Comments Repeated sit to stands and transfers performed with CGA and Mod cues for safety steps. Pt with less fatigue this AM and able to process cues and use FWW safely. Gait Assessment Gait Gait Assistance Required: Minimum Assistance Distance (Feet) 25 Able to Maintain Weight Bearing Status Yes During Gait Assistive Devices Assistive Device Gait Belt Front Wheeled Walker Orthotic/Prosthetic Devices or Brace: No Gait Deviations General Gait Pattern Ataxic Decreased Stride Length Decreased Feet Clearance Flexed Trunk Narrow Based Gait Step-to Gait Factors Limiting Gait Function Factors Limiting Gait Function Decreased Activity Tolerance Decreased Sensation Decreased Strength Difficulty Following Directions Incoordination Poor Balance Poor Safety Awareness Comments Gait Comments Completed 2 short walks, 12-15 feet each with focus on upright posture and keeping FWW close to body. CGA-Min A required and short step lengths. PT-Balance Assessment Comments Other Balance Tests/Deviations/Treatment Stood at sink x 1 min to brush : teeth with CGA and verbal/ tactile cues for posture. 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 Gross Range of Motion Lower Extremity ROM Assessment Within Functional Limits Strength Lower Extremity Strength Assessment Bilaterally Impaired Hip 4-/5 Knee 4-/5 Coordination Assessment Gross Coordination Gross Coordination WNL Sensation Assessment Sensation Light Touch Impaired Proprioception (Position) Impaired M6 PT-IP Treatment Start: 03/09/19 17:32 Freq: Status: Active Protocol: Document 03/11/19 11:14 SA (Rec: 03/11/19 11:23 [id number]) Physical Therapy Treatment Exercises Exercises Ankle Pumps Gluteal Sets Quad Sets Seated Knee Flexion/Extension Education Education Provided Safety Other Treatments Other Treatment Performed Focused on repetitions and safety with mobility tasks. M7 PT-IP Assessment and Plan Start: 03/09/19 17:32 Freq: Status: Active Protocol: Document 03/11/19 11:14 SA (Rec: 03/11/19 11:23 [id number]) PT Summary Assessment and Plan Summary Impairments ROM Strength Balance Coordination Sensation Tone Cognition Bed Mobility Transfers Gait Activity Tolerance Assessment Summary Treatment focused on safe transfers, use of FWW and standing tolerance with upright posture. Pt/ planning d/c to SNF for continued therapy. Frequency of Treatment Frequency Of Treatment Twice a Day Treatment Plan Physical Therapy Treatment Plan Bed Mobility Training Transfer Training Gait Training Therapeutic Exercise Balance Retraining Discharge Planning Hot or Cold Pack Neuromuscular Re-ed Coordination Retraining Manual Therapy Recommendations To Nursing Amount of Assist Needed 2 Person Assist Discharge Recommendations PT Discharge Recommendations SNF Rehab
--- NOTE | 2019-03-11 12:05 | CM.DPC ---
DCP: continued: Met with pt and Ricarda as planned this morning at 0900. /March did call and said the facility could not accept pt but she said perhaps [facility] could. [facility] is full with wait list (but list for males small) and Ricarda planned to follow up with Natacha to put pt officially on the list for admission. She noted she had toured [facility] in past and did not think this would be a very good fit for her . Discussed snf options: decision: CC. Gave referral to [facility] at 0920. Elisha arrived to assess pt and speak further with Ricarda at 1015. All was finalized for the SNF admission and with plan for transition to [facility] facility as the SNF d/c plan. W/c Van transport will pick pt up in his room at 1400. Ricarda is updated and will follow up today at the facility to get her settled in. She reports she is seeing Natacha at before she goes to [facility]. Dr. Krishnamurthy completed d/c orders and the SNF paperwork was faxed and placed into SNF packet. YSABEL Brito was updated throughout the process. PASRR was completed, faxed to [facility], copy to snf packet and [facility] into [facility]'s electronic [facility] record.
[2019-03-11 12:37] VITALS: BP 138/67; PULSE 85; RESP 16; TEMP 37.1; O2SAT 98
--- NOTE | 2019-03-11 13:01 | PC.NURSE ---
Report given to accepting nurse Lesia at [facility] in [facility]. Patient had lunch and remains without complaints.
--- NOTE | 2019-03-11 14:07 | PC.NURSE ---
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
== END 2019-03-11 14:09 ==
LOC: ED 12:24 → AC 17:55
PROVIDERS: Admitting Provider Internal Medicine; Emergency Provider Nurse Practitioner Family; Family Provider Internal Medicine; PCP Internal Medicine; Visit Provider Internal Medicine
DX: F03.90 Unspecified dementia, unspecified severity, without behavioral disturbance, psychotic disturbance, mood disturbance, and anxiety (principal); J44.9 Chronic obstructive pulmonary disease, unspecified; R53.1 Weakness; Z87.891 Personal history of nicotine dependence; M10.9 Gout, unspecified; F32.9 Major depressive disorder, single episode, unspecified; W19.XXXA Unspecified fall, initial encounter; S60.812A Abrasion of left wrist, initial encounter; I45.2 Bifascicular block
CPT/HCPCS: 36415; 36591; 70450; 71045; 80053; 81003; 82150; 82550; 83690; 83880; 84484; 85025; 85610; 93005; 94640; 94760; 94762; 96360; 96361; 96372; 97116; 97162; 97165; 97530; 99283; 99285; G0378; J1650; J7613

== ENCOUNTER → 2020-04-26 18:42 | Outpatient (ROUT) | payer MEDICARE, OTHER, SELFPAY ==
[2019-03-09 19:11] VITALS: BMI 25.4
[2020-04-26 19:04] LABS: Add Manual Diff / Slide Review NO; Basophils Absolute Auto 100 /uL (0-100); Basophils Percent Auto 0.8 % (0-2); Eosinophils Absolute Auto 500 /uL (0-450); Eosinophils Percent Auto 6.3 % (2-4); Hematocrit 45.6 % (41-53); Hemoglobin 14.9 g/dL (13.5-17.5); Lymphocytes Absolute Auto 1100 /uL (1100-4500); Lymphocytes Percent Auto 13.6 % (25-40); Mean Corpuscular HGB Conc 32.8 % (30-36); Mean Corpuscular Hemoglobin 29.5 PG (26-34); Mean Corpuscular Volume 89.9 fL (80-100); Monocytes Absolute Auto 700 /uL (0-900); Monocytes Percent Auto 8.8 % (3-14); Neutrophils Absolute Auto 5900 /uL (1500-7000); Neutrophils Percent Auto 70.5 % (50-75); Platelet Count 253 X10^3/uL (150-400); Red Blood Cell Count 5.07 X10^6/uL (4.5-5.9); Red Cell Distribution Width 14.4 % (11.6-14.8); White Blood Cell Count 8.3 X10^3/uL (4.5-11.0)
[2020-04-26 19:10] LABS: Alanine Aminotransferase 24 IU/L (<50); Albumin 3.9 g/dL (3.5-5.0); Albumin Globulin Ratio 1.4 (1.0-2.8); Alkaline Phosphatase 112 U/L (38-126); Aspartate Aminotransferase 20 IU/L (17-59); BUN Creatinine Ratio 18.4 (6-22); Bilirubin Total 0.3 mg/dL (0.2-1.3); Blood Urea Nitrogen 18 mg/dL (9-20); Calcium 9.8 mg/dL (8.4-10.2); Carbon Dioxide 28 mmol/L (22-32); Chloride 103 mmol/L (98-107); Cholesterol 129 mg/dL (140-199); Estimated Glomerular Filt Rate > 60.0 mL/min (>60); Globulin 2.7 g/dL (1.7-4.1); Glucose 137 mg/dL (80-110); HDL Cholesterol 51 mg/dL (40-60); HEMOLYSIS < 15 (0-50); LDL Cholesterol Calculated 48 mg/dL (<100); Potassium 4.6 mmol/L (3.4-5.1); Sodium 138 mmol/L (137-145); Total Protein 6.6 g/dL (6.3-8.2); Triglycerides 149 mg/dL (35-150)
[2020-04-26 19:39] LABS: TSH w/ Reflex to FT4 3.92 uIU/mL (0.47-4.68)
== END ==
PROVIDERS: Family Provider Internal Medicine; PCP Internal Medicine; Visit Provider Internal Medicine
DX: I10 Essential (primary) hypertension (principal); E78.2 Mixed hyperlipidemia
CPT/HCPCS: 80053; 80061; 84443; 85025

== ENCOUNTER 2020-09-27 10:29 | Emergency (ER) | payer MEDICARE, OTHER, SELFPAY ==
[2019-03-09 19:11] VITALS: BMI 25.4
[2020-09-27] VITALS (16 sets, daily range): BP systolic 121–204; BP diastolic 72–114; PULSE 88–108; RESP 14–18; TEMP 36.4; O2SAT 92–96; BMI 22.6
--- NOTE | 2020-09-27 10:56 | DI.RAD.S_ITS ---
PROCEDURE: XR ACUTE ABDOMEN SERIES INDICATIONS: vomiting, distended TECHNIQUE: One view chest and two views of the abdomen were acquired. COMPARISON: None. FINDINGS: Surgical changes and devices: None. Chest: Lungs are clear. Heart size is normal. No pleural effusions. No pneumoperitoneum. Abdomen: Markedly air distended bowel loops throughout the abdomen is seen . No gross peritoneal free air. No suspicious calcifications. Visualized solid organ contours appear normal. Bones: No suspicious bony lesions. IMPRESSION: 1. Markedly distended bowel loops throughout the abdomen concerning for ileus versus distal colonic obstruction, suggest clinical correlation. No gross free air. 2. No focal infiltrate, pleural effusion or pneumothorax. Dictated by: Gerson Weir M.D. on 09/27/2020 at 11:49 Approved by: Gerson Weir M.D. on 09/27/2020 at 11:51
--- NOTE | 2020-09-27 11:05 | ED_ITS ---
HPI - Nausea/Vomiting/Diarrhea <rAmida Dent, HOME HEALTH CARE SOCIAL WORKER-BC - Last Filed: 09/27/20 16:01> General Chief complaint: Nausea/Vomiting/Diarrhea Stated complaint: N/V/D Time Seen by Provider: 09/27/20 10:42 Source: patient and EMS Mode of arrival: EMS Limitations: altered mental status History of Present Illness HPI Narrative: The patient is an 85-year-old male former smoker with history of COPD, dementia and weakness who presents with a chief complaint of nausea vomiting and diarrhea. The patient's caregiver states that she found him with brown vomit on his lips today. He reportedly had loose stools for the past few days, which the patient denies. He denies any chest pain, shortness of breath, lightheadedness or dizziness. He denies any history of abdominal surgeries or abdominal history. He presents by EMS, HPI and ROS complicated by patient's baseline dementia. However he states his last bowel movement yesterday, denies any dysuria urgency or frequency, denies any fevers muscle aches or chills. He lives in a [facility] in [place] with his . Related Data Home Medications Medication Instructions Recorded Confirmed donepezil [Aricept] 2 tab PO QPM #0 10/04/17 03/09/19 fluoxetine 20 mg PO QDAY #0 10/04/17 03/09/19 Serevent Diskus 1 inh INHALATION BID 07/21/18 03/09/19 latanoprost 1 drp EYE-BOTH BEDTIME 07/21/18 03/09/19 memantine [Namenda] 10 mg PO BID 07/21/18 03/09/19 ergocalciferol (vitamin D2) 1 cap PO QWEEK 07/27/18 03/09/19 cyanocobalamin (vitamin B-12) 1,000 mcg PO DAILY 03/09/19 09/27/20 dorzolamide 1 drp OPHTHALMIC (EYE) TID 03/09/19 09/27/20 Previous Rx's Medication Instructions Recorded ondansetron 4 mg PO Q6H PRN #20 tab 09/27/20 simethicone 180 mg PO QD-BID PRN #20 cap 09/27/20 Allergies Allergy/AdvReac Type Severity Reaction Status Date / Time No Known Drug Allergies Allergy Verified 09/27/20 10:54 Review of Systems <CARLTON Mejía - Last Filed: 09/27/20 16:01> Review of Systems Narrative: GENERAL: Denies chills, fatigue, malaise, fever, sweats. HEENT: Denies sinus pain, ear pain, sore throat, difficulty swallowing, dizziness. RESPIRATORY: Denies dyspnea, cough, wheezing, hemoptysis, sputum. CARDIOVASCULAR: Denies chest pain, palpitations, orthopnea, edema, GASTROINTESTINAL: See HPI : Denies dysuria, frequency, incontinence, hematuria, urinary retention. MUSCULOSKELETAL: denies weakness, joint pain, or bony pain SKIN: Denies rash, skin lesions, or other NEUROLOGIC: Denies weakness, headache, numbness, change in speech, confusion, seizures, incoordination. PSYCHIATRIC: No concerning psychosocial issues. 12 point review of systems is negative except for those stated above Patient History <CARLTON Mejía - Last Filed: 09/27/20 16:01> Medical History (Updated 09/27/20 @ 15:22 by CARLTON Mejía) COPD (chronic obstructive pulmonary disease) Dementia Depression Emphysema lung Gout Presbycusis of both ears Psoriasis Surgical History History of appendectomy History of right cataract extraction History of tonsillectomy Social History household members: spouse Smoking Status: Former smoker Tobacco: How many years used: 40 Smoking Status: Former smoker alcohol intake frequency: 0-2 drinks per day Substance Use Type: does not use Exam <CARLTON Mejía - Last Filed: 09/27/20 16:01> Narrative Exam Narrative: GENERAL: This is a well-nourished, well-developed patient, in no acute distress, fatigued HEAD: Atraumatic. Normocephalic. No temporal or scalp tenderness. EYES: Pupils equal round and reactive. Extraocular motions intact. No scleral icterus. No injection or drainage. ENT: Nose without bleeding, purulent drainage or septal hematoma. Wearing a mask. Airway patent. NECK: Trachea midline. No JVD or lymphadenopathy. Supple, nontender, no meningeal signs. CARDIOVASCULAR: Regular rate and rhythm RESPIRATORY: Clear to auscultation. Breath sounds equal bilaterally. No wheezes, rales, or rhonchi. GASTROINTESTINAL: Abdomen soft, non-tender, slightly distended, active bowel sounds all 4 quadrants, No hepato-splenomegaly, or palpable masses. No guarding. EXTREMITIES: No clubbing, cyanosis, or edema. No joint tenderness, effusion, or edema noted. BACK: Nontender without deformity or crepitance. No flank tenderness. NEURO: Alert, oriented to name, knows 's name, states he is at a [facility], states it is 2009 SKIN: No rash or erythema on visible skin Initial Vital Signs Initial Vital Signs: Vital Signs Temperature 97.5 F L 09/27/20 10:39 Pulse Rate 108 H 09/27/20 10:39 Respiratory Rate 18 09/27/20 10:39 Blood Pressure 159/93 H 09/27/20 10:39 Pulse Oximetry 95 09/27/20 10:39 <Armida Stockton DO - Last Filed: 09/27/20 18:31> Initial Vital Signs Initial Vital Signs: Vital Signs Temperature 97.5 F L 09/27/20 10:39 Pulse Rate 108 H 09/27/20 10:39 Respiratory Rate 18 09/27/20 10:39 Blood Pressure 159/93 H 09/27/20 10:39 Pulse Oximetry 95 09/27/20 10:39 Procedures <CARLTON Mejía - Last Filed: 09/27/20 16:01> Stool Hemoccult Procedural Steps Taken: stool placed in appropriate test area, developer placed on stool and control areas and controls appropriately positive and negative Hemoccult result: negative Additional Comments: rectal with edgar rn at bedside. confirmed negative with edgar rn Scores <CARLTON Mejía - Last Filed: 09/27/20 16:01> GCS [place] coma scale eye opening: Spontaneous [place] coma scale verbal response: Orientated [place] coma scale motor response: Obey commands Ld coma scale total score: 15 Course <CARLTON Mejía - Last Filed: 09/27/20 16:01> Orders Ordered: ED Orders 09/27/20 10:50 Complete Blood Count AUTO DIFF Stat Comprehensive Metabolic Panel Stat Lactate (Lactic Acid) Stat Lipase Stat Partial Thromboplastin Time Stat Prothrombin Time INR Stat Troponin & CK Cardiac Panel Stat 09/27/20 10:54 EKG-12 Lead Stat 09/27/20 10:56 XR acute abdomen series Stat 09/27/20 11:35 COVID19 Stat Influenza A & B (PCR) Stat 09/27/20 12:08 CT abdomen pelvis w con Stat CT head/brain wo con Stat Discontinued Medications Sodium Chloride (Normal Saline 0.9%) 1,000 mls @ 1,000 mls/hr IV BOLUS ONE Stop: 09/27/20 11:53 Last Infusion: 09/27/20 12:20 Dose: 0 mls/hr Documented by: Admin: 09/27/20 11:16 Dose: 1,000 mls/hr Documented by: CVANCE Ondansetron HCl (Ondansetron 4 Mg/2 Ml Inj) 4 mg IV NOW ONE Stop: 09/27/20 10:55 Last Admin: 09/27/20 11:17 Dose: 4 mg Documented by: CVANCE Simethicone (Simethicone 80 Mg Tablet) 80 mg PO NOW ONE Stop: 09/27/20 13:33 Last Admin: 09/27/20 13:58 Dose: 80 mg Documented by: CVANCE Vital Signs Vital signs: Vital Signs - 8 hr 09/27/20 10:39 09/27/20 11:46 09/27/20 12:00 Temperature 97.5 F L Pulse Rate 108 H 94 H 88 Respiratory Rate 18 16 Blood Pressure 159/93 H 155/85 H 148/72 H Pulse Oximetry 95 95 95 09/27/20 13:06 09/27/20 13:10 09/27/20 13:30 Temperature Pulse Rate 99 H 95 H 88 Respiratory Rate Blood Pressure 204/98 H 195/95 H 184/114 H Pulse Oximetry 95 93 92 09/27/20 13:38 09/27/20 13:51 09/27/20 14:00 Temperature Pulse Rate 94 H Respiratory Rate Blood Pressure 191/102 H 169/88 H Pulse Oximetry 96 09/27/20 14:02 09/27/20 14:19 09/27/20 14:30 Temperature Pulse Rate 99 H 97 H 94 H Respiratory Rate 16 Blood Pressure 169/88 H 124/76 Pulse Oximetry 94 94 95 09/27/20 15:00 09/27/20 15:30 09/27/20 16:19 Temperature Pulse Rate 97 H 95 H 88 Respiratory Rate 14 Blood Pressure 156/91 H 121/77 133/88 Pulse Oximetry 94 95 94 09/27/20 16:25 Temperature Pulse Rate 88 Respiratory Rate 15 Blood Pressure 133/88 Pulse Oximetry 94 <Armida Stockton DO - Last Filed: 09/27/20 18:31> Orders Ordered: ED Orders 09/27/20 10:50 Complete Blood Count AUTO DIFF Stat Comprehensive Metabolic Panel Stat Lactate (Lactic Acid) Stat Lipase Stat Partial Thromboplastin Time Stat Prothrombin Time INR Stat Troponin & CK Cardiac Panel Stat 09/27/20 10:54 EKG-12 Lead Stat 09/27/20 10:56 XR acute abdomen series Stat 09/27/20 11:35 COVID19 Stat Influenza A & B (PCR) Stat 09/27/20 12:08 CT abdomen pelvis w con Stat CT head/brain wo con Stat Discontinued Medications Sodium Chloride (Normal Saline 0.9%) 1,000 mls @ 1,000 mls/hr IV BOLUS ONE Stop: 09/27/20 11:53 Last Infusion: 09/27/20 12:20 Dose: 0 mls/hr Documented by: Admin: 09/27/20 11:16 Dose: 1,000 mls/hr Documented by: BEKA Ondansetron HCl (Ondansetron 4 Mg/2 Ml Inj) 4 mg IV NOW ONE Stop: 09/27/20 10:55 Last Admin: 09/27/20 11:17 Dose: 4 mg Documented by: MORIAHANCE Simethicone (Simethicone 80 Mg Tablet) 80 mg PO NOW ONE Stop: 09/27/20 13:33 Last Admin: 09/27/20 13:58 Dose: 80 mg Documented by: CVANCE Vital Signs Vital signs: Vital Signs - 8 hr 09/27/20 10:39 09/27/20 11:46 09/27/20 12:00 Temperature 97.5 F L Pulse Rate 108 H 94 H 88 Respiratory Rate 18 16 Blood Pressure 159/93 H 155/85 H 148/72 H Pulse Oximetry 95 95 95 09/27/20 13:06 09/27/20 13:10 09/27/20 13:30 Temperature Pulse Rate 99 H 95 H 88 Respiratory Rate Blood Pressure 204/98 H 195/95 H 184/114 H Pulse Oximetry 95 93 92 09/27/20 13:38 09/27/20 13:51 09/27/20 14:00 Temperature Pulse Rate 94 H Respiratory Rate Blood Pressure 191/102 H 169/88 H Pulse Oximetry 96 09/27/20 14:02 09/27/20 14:19 09/27/20 14:30 Temperature Pulse Rate 99 H 97 H 94 H Respiratory Rate 16 Blood Pressure 169/88 H 124/76 Pulse Oximetry 94 94 95 09/27/20 15:00 09/27/20 15:30 09/27/20 16:19 Temperature Pulse Rate 97 H 95 H 88 Respiratory Rate 14 Blood Pressure 156/91 H 121/77 133/88 Pulse Oximetry 94 95 94 09/27/20 16:25 Temperature Pulse Rate 88 Respiratory Rate 15 Blood Pressure 133/88 Pulse Oximetry 94 MDM - Nausea/Vomiting/Diarrhea <JORDY Mejía-BC - Last Filed: 09/27/20 16:01> Differential Diagnosis Differential diagnosis: Likely food poisoning, drug-induced nausea and vomiting and dehydration Lab Data Attestation: I reviewed the patient's lab results. Result diagrams: 09/27/20 10:50 09/27/20 10:50 Labs: Lab Results 09/27/20 09/27/20 09/27/20 Range/Units 10:50 10:50 10:50 WBC 13.3 H (4.5-11.0) X10^3/uL RBC 5.31 (4.5-5.9) X10^6/uL Hgb 15.8 (13.5-17.5) g/dL Hct 46.9 (41-53) % MCV 88.4 (80-100) fL MCH 29.7 (26-34) PG MCHC 33.6 (30-36) % RDW 13.6 (11.6-14.8) % Plt Count 326 (150-400) X10^3/uL Neut % (Auto) 85.2 H (50-75) % Lymph % (Auto) 7.1 L (25-40) % Hanson % (Auto) 7.1 (3-14) % Eos % (Auto) 0.4 L (2-4) % Baso % (Auto) 0.2 (0-2) % Neut # (Auto) 14928 H (9026-3267) /uL Lymph # (Auto) 900 L (4560-9109) /uL Hanson # (Auto) 900 (0-900) /uL Eos # (Auto) 100 (0-450) /uL Baso # (Auto) 0 (0-100) /uL PT 13.8 H (10.1-12.7) SECONDS INR 1.2 (0.9-1.3) APTT 31 (26.4-36.2) SECONDS Sodium 137 (137-145) mmol/L Potassium 3.5 (3.4-5.1) mmol/L Chloride 101 (98-107) mmol/L Carbon Dioxide 26 (22-32) mmol/L BUN 21 H (9-20) mg/dL Creatinine 1.07 (0.66-1.25) mg/dL Estimated GFR > 60.0 (>60) mL/min BUN/Creatinine Ratio 19.6 (6-22) Glucose 142 H (80-110) mg/dL Lactate (0.7-2.1) mmol/L Calcium 10.0 (8.4-10.2) mg/dL Total Bilirubin 0.4 (0.2-1.3) mg/dL AST 25 (17-59) IU/L ALT 12 (<50) IU/L Alkaline Phosphatase 98 (38-126) U/L Total Creatine Kinase 61 (55-170) U/L CK-MB (CK-2) TNP CK-MB (CK-2) Rel Index TNP Troponin I 0.015 (0.01-0.034) ng/mL Total Protein 7.5 (6.3-8.2) g/dL Albumin 4.1 (3.5-5.0) g/dL Globulin 3.4 (1.7-4.1) g/dL Albumin/Globulin Ratio 1.2 (1.0-2.8) Lipase 51 (23-300) U/L COVID-19 PCR (Negative) Influenza A (RT-PCR) (NEGATIVE) Influenza B (RT-PCR) (NEGATIVE) 09/27/20 09/27/20 09/27/20 Range/Units 10:50 11:35 11:35 WBC (4.5-11.0) X10^3/uL RBC (4.5-5.9) X10^6/uL Hgb (13.5-17.5) g/dL Hct (41-53) % MCV (80-100) fL MCH (26-34) PG MCHC (30-36) % RDW (11.6-14.8) % Plt Count (150-400) X10^3/uL Neut % (Auto) (50-75) % Lymph % (Auto) (25-40) % Hanson % (Auto) (3-14) % Eos % (Auto) (2-4) % Baso % (Auto) (0-2) % Neut # (Auto) (0466-1885) /uL Lymph # (Auto) (5247-0047) /uL Hanson # (Auto) (0-900) /uL Eos # (Auto) (0-450) /uL Baso # (Auto) (0-100) /uL PT (10.1-12.7) SECONDS INR (0.9-1.3) APTT (26.4-36.2) SECONDS Sodium (137-145) mmol/L Potassium (3.4-5.1) mmol/L Chloride (98-107) mmol/L Carbon Dioxide (22-32) mmol/L BUN (9-20) mg/dL Creatinine (0.66-1.25) mg/dL Estimated GFR (>60) mL/min BUN/Creatinine Ratio (6-22) Glucose (80-110) mg/dL Lactate 1.9 (0.7-2.1) mmol/L Calcium (8.4-10.2) mg/dL Total Bilirubin (0.2-1.3) mg/dL AST (17-59) IU/L ALT (<50) IU/L Alkaline Phosphatase (38-126) U/L Total Creatine Kinase (55-170) U/L CK-MB (CK-2) CK-MB (CK-2) Rel Index Troponin I (0.01-0.034) ng/mL Total Protein (6.3-8.2) g/dL Albumin (3.5-5.0) g/dL Globulin (1.7-4.1) g/dL Albumin/Globulin Ratio (1.0-2.8) Lipase (23-300) U/L COVID-19 PCR Negative (Negative) Influenza A (RT-PCR) Flu a negative (NEGATIVE) Influenza B (RT-PCR) Flu b negative (NEGATIVE) Point of Care Testing Stool Occult Blood Negative Imaging Data CT scan - head: Radiologist's Impression: [address] [place] [id number] Scan ReportSigned Patient: Nathaniel Regan [facility]#: [id number]: 7Acct:[id number]/Sex: 85 / MDate of Service: 09/27/20Loc: EDAccession Number: [id number] Procedure: CT head/brain wo con Ordering Provider: Armida Dent PROCEDURE: CT HEAD/BRAIN WO CON INDICATIONS: weakness, somnolence TECHNIQUE: Noncontrast 4.5 mm thick angled axial sections acquired from the foramen magnum to the vertex, with coronal and sagittal reformats. For radiation dose reduction, the following was used: automated exposure control, adjustment of mA and/or kV according to patient size. COMPARISON: [facility], CT, CT HEAD/BRAIN WO CON, 03/09/2019, 12:33. FINDINGS: Image quality: Excellent. CSF spaces: Basal cisterns are patent. No extra-axial fluid collections. Ventricles are normal in size and shape. Brain: No midline shift. No intracranial masses or hemorrhage. Daniels-white matter interface is normal. The ventricles are enlarged, unchanged compared to prior study on 03/09/2019. This is out of proportion to underlying cerebral cortical atrophy and is consistent with hydrocephalus. Skull and face: Calvarium and visualized facial bones are intact, without suspicious lesions. Sinuses: Visualized sinuses and mastoids are clear. IMPRESSION: 1. No acute intracranial abnormality. 2. [id number] hydrocephalus, at of proportion for degree of cerebral c ortical atrophy. This is stable to prior studies. Dictated by: Blane Lucero M.D. on 09/27/2020 at 12:37 Approved by: Blane Lucero M.D. on 09/27/2020 at 12:40 CT scan - abdomen/pelvis: Radiologist's Impression: [address] [place] [id number] Scan ReportSigned Patient: Nathaniel Regan [facility]#: [id number]: 7Acct:[id number]/Sex: 85 / MDate of Service: 09/27/20Loc: EDAccession Number: [id number] Procedure: CT abdomen pelvis w con Ordering Provider: Armida Dent PROCEDURE: CT ABDOMEN PELVIS W CON INDICATIONS: n/v/d, abd distention TECHNIQUE: After the administration of intravenous contrast, 5 mm thick sections acquired from the diaphragm to the symphysis. 5 mm coronal and sagittal reformats were acquired. For radiation dose reduction, the following was used: automated exposure control, adjustment of mA and/or kV according to patient size. COMPARISON: None. FINDINGS: Image quality: Excellent. ABDOMEN: Lung bases: Bibasilar atelectasis. No focal consolidation or pleural effusion. Solid organs: Liver is normal in size and enhancement. Gallbladder is normal. Biliary system is non dilated. Pancreas enhances normally. Spleen is normal in size and enhancement. No adrenal nodules. Kidneys demonstrate normal size and enhanceme nt, without hydronephrosis. Peritoneum and bowel: There is a small hiatal hernia. The stomach and small bowel have a normal caliber and appearance. The entire large bowel is distended with air m easuring up to 8 centimeters in diameter. Nodes and vessels: No retroperitoneal or mesenteric adenopathy by size criteria. Aorta and inferior vena cava are normal in size. Miscellaneous: No ventral hernias. PELVIS: Genitourinary: Bladder wall thickness is normal. Miscellaneous: No inguinal hernias or adenopathy. Bones: No suspicious bony lesions. No vertebral body compression fractures. IMPRESSION: 1. Air distention of the large bowel most consistent with ileus. No evidence of large bowel obstruction. Are no small bowel obstruction. 2. Hiatal hernia. 3. Bibasilar atelectasis. Dictated by: Blane Lucero M.D. on 09/27/2020 at 12:40 Approved by: Blane Lucero M.D. on 09/27/2020 at 12:46 MDM Narrative Medical decision making narrative: The patient is an 85-year-old male who presents with a chief complaint of nausea vomiting and diarrhea since yesterday. Overall the patient appears hemodynamically stable at his baseline mental status per his at bedside. Given initial decreased history taking, the patient appeared somnolent, so obtain head CT with no acute findings. Later found out that the patient was up vomiting all night which would correlate with his fatigue today. However he is easily arousable, oriented at baseline. CT scan was taking given acute abdomen series illustrate an lots of gaseous distension. No small-bowel obstruction or otherwise acute etiology on abdomen pelvis CT. Patient was given simethicone and found to be much improved. He is able to tolerate a p.o. trial, keeping known juice after a single dose of Zofran. Discussed the patient with Dr. Stockton, elected to discharge home with strict return precautions given lack of bowel obstruction on CT scan. Spoke with creative engagement director at [facility], discussed plan for patient as well as follow-up with primary care provider in the next few days as well as very strict return precautions to the emergency department including high fever with abdominal pain etcetera. Patient also test negative for coronavirus as well as influenza in the emergency department. states understanding return precautions as well as follow-up care, as does shannon, creative engagement director. Gi myra patient's immobility, BLS was obtained with scheduled transportation at 4:30 p.m. back to [facility]. <Armida Stockton, DO - Last Filed: 09/27/20 18:31> Lab Data Labs: Lab Results 09/27/20 09/27/20 09/27/20 Range/Units 10:50 10:50 10:50 WBC 13.3 H (4.5-11.0) X10^3/uL RBC 5.31 (4.5-5.9) X10^6/uL Hgb 15.8 (13.5-17.5) g/dL Hct 46.9 (41-53) % MCV 88.4 (80-100) fL MCH 29.7 (26-34) PG MCHC 33.6 (30-36) % RDW 13.6 (11.6-14.8) % Plt Count 326 (150-400) X10^3/uL Neut % (Auto) 85.2 H (50-75) % Lymph % (Auto) 7.1 L (25-40) % Hanson % (Auto) 7.1 (3-14) % Eos % (Auto) 0.4 L (2-4) % Baso % (Auto) 0.2 (0-2) % Neut # (Auto) 20099 H (2884-8855) /uL Lymph # (Auto) 900 L (5679-0372) /uL Hanson # (Auto) 900 (0-900) /uL Eos # (Auto) 100 (0-450) /uL Baso # (Auto) 0 (0-100) /uL PT 13.8 H (10.1-12.7) SECONDS INR 1.2 (0.9-1.3) APTT 31 (26.4-36.2) SECONDS Sodium 137 (137-145) mmol/L Potassium 3.5 (3.4-5.1) mmol/L Chloride 101 (98-107) mmol/L Carbon Dioxide 26 (22-32) mmol/L BUN 21 H (9-20) mg/dL Creatinine 1.07 (0.66-1.25) mg/dL Estimated GFR > 60.0 (>60) mL/min BUN/Creatinine Ratio 19.6 (6-22) Glucose 142 H (80-110) mg/dL Lactate (0.7-2.1) mmol/L Calcium 10.0 (8.4-10.2) mg/dL Total Bilirubin 0.4 (0.2-1.3) mg/dL AST 25 (17-59) IU/L ALT 12 (<50) IU/L Alkaline Phosphatase 98 (38-126) U/L Total Creatine Kinase 61 (55-170) U/L CK-MB (CK-2) TNP CK-MB (CK-2) Rel Index TNP Troponin I 0.015 (0.01-0.034) ng/mL Total Protein 7.5 (6.3-8.2) g/dL Albumin 4.1 (3.5-5.0) g/dL Globulin 3.4 (1.7-4.1) g/dL Albumin/Globulin Ratio 1.2 (1.0-2.8) Lipase 51 (23-300) U/L COVID-19 PCR (Negative) Influenza A (RT-PCR) (NEGATIVE) Influenza B (RT-PCR) (NEGATIVE) 09/27/20 09/27/20 09/27/20 Range/Units 10:50 11:35 11:35 WBC (4.5-11.0) X10^3/uL RBC (4.5-5.9) X10^6/uL Hgb (13.5-17.5) g/dL Hct (41-53) % MCV (80-100) fL MCH (26-34) PG MCHC (30-36) % RDW (11.6-14.8) % Plt Count (150-400) X10^3/uL Neut % (Auto) (50-75) % Lymph % (Auto) (25-40) % Hanson % (Auto) (3-14) % Eos % (Auto) (2-4) % Baso % (Auto) (0-2) % Neut # (Auto) (8887-3124) /uL Lymph # (Auto) (1511-8770) /uL Hanson # (Auto) (0-900) /uL Eos # (Auto) (0-450) /uL Baso # (Auto) (0-100) /uL PT (10.1-12.7) SECONDS INR (0.9-1.3) APTT (26.4-36.2) SECONDS Sodium (137-145) mmol/L Potassium (3.4-5.1) mmol/L Chloride (98-107) mmol/L Carbon Dioxide (22-32) mmol/L BUN (9-20) mg/dL Creatinine (0.66-1.25) mg/dL Estimated GFR (>60) mL/min BUN/Creatinine Ratio (6-22) Glucose (80-110) mg/dL Lactate 1.9 (0.7-2.1) mmol/L Calcium (8.4-10.2) mg/dL Total Bilirubin (0.2-1.3) mg/dL AST (17-59) IU/L ALT (<50) IU/L Alkaline Phosphatase (38-126) U/L Total Creatine Kinase (55-170) U/L CK-MB (CK-2) CK-MB (CK-2) Rel Index Troponin I (0.01-0.034) ng/mL Total Protein (6.3-8.2) g/dL Albumin (3.5-5.0) g/dL Globulin (1.7-4.1) g/dL Albumin/Globulin Ratio (1.0-2.8) Lipase (23-300) U/L COVID-19 PCR Negative (Negative) Influenza A (RT-PCR) Flu a negative (NEGATIVE) Influenza B (RT-PCR) Flu b negative (NEGATIVE) Point of Care Testing Stool Occult Blood Negative ECG Data Attestation: I personally reviewed and interpreted this ECG as follows: Interpretation: Sinus rhythm rate of 96, P are 150, QRS of 148 QTC 510. 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 He does have changes from V1, V2 and V3 where he has RSR in V1 that now appears to be in V2. In V1 V3 the T-waves are now changed wears V1 was inverted before it is now upright and in V3 it was upright and is now inverted. No other changes are appreciated another Leads. Discharge Plan Departure Patient Disposition: Home Clinical Impression: Abdominal distension, gaseous Abdominal pain Qualifiers: Abdominal location: generalized Qualified Code(s): R10.84 - Generalized abdominal pain Instructions: How to Avoid Gas, Intestinal Gas (Alternative Therapy), DI for Abdominal Pain-Adult, DI for Vomiting -- Adult Activity Restrictions/Additional Instructions: Thank you trusting us with your care today As discussed, your COVID test is negative, your influenza test is negative. Your abdominal scan shows no evidence of obstruction. However you do have a lot of gas in your abdomen. I did give you a prescription for simethicone, which can help reduce the gas. We have given you a dose in the emergency department. I also sent in a prescription of ondansetron for nausea. This dissolves under the tongue. Please be aware can be constipating As discussed, please come back to emergency department for any acute concerns including abdominal pain with fever, inability keep down fluids etcetera I would like you to follow-up with primary care provider in the next few days I sent your two prescriptions to [facility]. Prescriptions: New ondansetron 4 mg tablet,disintegrating 4 mg PO Q6H PRN (Reason: nausea and vomiting) Qty: 20 RF: 0 simethicone 180 mg capsule 180 mg PO QD-BID PRN (Reason: abdominal distention) Qty: 20 RF: 0 No Action fluoxetine 20 MG capsule 20 mg PO QDAY Qty: 0 RF: 0 donepezil [Aricept] 10 MG tablet 2 tab PO QPM Qty: 0 RF: 0 latanoprost 0.005 % Drops 1 drp EYE-BOTH BEDTIME RF: 0 Serevent Diskus 50 mcg/dose Blister With Device 1 inh INHALATION BID RF: 0 memantine [Namenda] 10 mg Tablet 10 mg PO BID RF: 0 ergocalciferol (vitamin D2) 50,000 unit capsule 1 cap PO QWEEK RF: 0 dorzolamide 2 % Drops 1 drp ophthalmic (eye) TID RF: 0 cyanocobalamin (vitamin B-12) 1,000 mcg Capsule 1,000 mcg PO DAILY RF: 0 Referrals: Kenny Bruno MD [Primary Care Provider] - <Armida Stockton DO - Last Filed: 09/27/20 18:31> Cosign ED Attending Cosignature Attestation: I was immediately available in the department for consultation. Documentation has been reviewed. Labs, imaging and case discussed with myself agree with plan.
[2020-09-27 11:08] LABS: Add Manual Diff / Slide Review NO; Basophils Absolute Auto 0 /uL (0-100); Basophils Percent Auto 0.2 % (0-2); Eosinophils Absolute Auto 100 /uL (0-450); Eosinophils Percent Auto 0.4 % (2-4); Hematocrit 46.9 % (41-53); Hemoglobin 15.8 g/dL (13.5-17.5); Lymphocytes Absolute Auto 900 /uL (1100-4500); Lymphocytes Percent Auto 7.1 % (25-40); Mean Corpuscular HGB Conc 33.6 % (30-36); Mean Corpuscular Hemoglobin 29.7 PG (26-34); Mean Corpuscular Volume 88.4 fL (80-100); Monocytes Absolute Auto 900 /uL (0-900); Monocytes Percent Auto 7.1 % (3-14); Neutrophils Absolute Auto 11300 /uL (1500-7000); Neutrophils Percent Auto 85.2 % (50-75); Platelet Count 326 X10^3/uL (150-400); Red Blood Cell Count 5.31 X10^6/uL (4.5-5.9); Red Cell Distribution Width 13.6 % (11.6-14.8); White Blood Cell Count 13.3 X10^3/uL (4.5-11.0)
[2020-09-27 11:09] LABS: INR 1.2 (0.9-1.3); Prothrombin Time 13.8 SECONDS (10.1-12.7)
[2020-09-27 11:12] LABS: PTT Partial Thromboplastin Tim 31 SECONDS (26.4-36.2)
[2020-09-27 11:14] LABS: Alanine Aminotransferase 12 IU/L (<50); Albumin 4.1 g/dL (3.5-5.0); Albumin Globulin Ratio 1.2 (1.0-2.8); Alkaline Phosphatase 98 U/L (38-126); Aspartate Aminotransferase 25 IU/L (17-59); BUN Creatinine Ratio 19.6 (6-22); Bilirubin Total 0.4 mg/dL (0.2-1.3); Blood Urea Nitrogen 21 mg/dL (9-20); Carbon Dioxide 26 mmol/L (22-32); Chloride 101 mmol/L (98-107); Creatine Kinase 61 U/L (55-170); Estimated Glomerular Filt Rate > 60.0 mL/min (>60); Globulin 3.4 g/dL (1.7-4.1); Glucose 142 mg/dL (80-110); Potassium 3.5 mmol/L (3.4-5.1); Sodium 137 mmol/L (137-145); Total Protein 7.5 g/dL (6.3-8.2)
[2020-09-27 11:15] LABS: Lactate (Lactic Acid) 1.9 mmol/L (0.7-2.1)
[2020-09-27] MEDS: SODIUM CHLORIDE 0.9% 1,000 ML 1000 ML IV (11:16)
[2020-09-27] MEDS: ONDANSETRON 4 MG/2 ML INJ IV (11:17)
[2020-09-27 11:26] LABS: Troponin I 0.015 ng/mL (0.01-0.034)
[2020-09-27 11:51] LABS: HEMOLYSIS 30 (0-50); Lipase 51 U/L (23-300)
--- NOTE | 2020-09-27 12:08 | DI.CT.S_ITS ---
PROCEDURE: CT HEAD/BRAIN WO CON INDICATIONS: weakness, somnolence TECHNIQUE: Noncontrast 4.5 mm thick angled axial sections acquired from the foramen magnum to the vertex, with coronal and sagittal reformats. For radiation dose reduction, the following was used: automated exposure control, adjustment of mA and/or kV according to patient size. COMPARISON: [facility], CT, CT HEAD/BRAIN WO CON, 03/09/2019, 12:33. FINDINGS: Image quality: Excellent. CSF spaces: Basal cisterns are patent. No extra-axial fluid collections. Ventricles are normal in size and shape. Brain: No midline shift. No intracranial masses or hemorrhage. Daniels-white matter interface is normal. The ventricles are enlarged, unchanged compared to prior study on 03/09/2019. This is out of proportion to underlying cerebral cortical atrophy and is consistent with hydrocephalus. Skull and face: Calvarium and visualized facial bones are intact, without suspicious lesions. Sinuses: Visualized sinuses and mastoids are clear. IMPRESSION: 1. No acute intracranial abnormality. 2. [id number] hydrocephalus, at of proportion for degree of cerebral cortical atrophy. This is stable to prior studies. Dictated by: Blane Lucero M.D. on 09/27/2020 at 12:37 Approved by: Blane Lucero M.D. on 09/27/2020 at 12:40
--- NOTE | 2020-09-27 12:08 | DI.CT.S_ITS ---
PROCEDURE: CT ABDOMEN PELVIS W CON INDICATIONS: n/v/d, abd distention TECHNIQUE: After the administration of intravenous contrast, 5 mm thick sections acquired from the diaphragm to the symphysis. 5 mm coronal and sagittal reformats were acquired. For radiation dose reduction, the following was used: automated exposure control, adjustment of mA and/or kV according to patient size. COMPARISON: None. FINDINGS: Image quality: Excellent. ABDOMEN: Lung bases: Bibasilar atelectasis. No focal consolidation or pleural effusion. Solid organs: Liver is normal in size and enhancement. Gallbladder is normal. Biliary system is non dilated. Pancreas enhances normally. Spleen is normal in size and enhancement. No adrenal nodules. Kidneys demonstrate normal size and enhancement, without hydronephrosis. Peritoneum and bowel: There is a small hiatal hernia. The stomach and small bowel have a normal caliber and appearance. The entire large bowel is distended with air measuring up to 8 centimeters in diameter. Nodes and vessels: No retroperitoneal or mesenteric adenopathy by size criteria. Aorta and inferior vena cava are normal in size. Miscellaneous: No ventral hernias. PELVIS: Genitourinary: Bladder wall thickness is normal. Miscellaneous: No inguinal hernias or adenopathy. Bones: No suspicious bony lesions. No vertebral body compression fractures. IMPRESSION: 1. Air distention of the large bowel most consistent with ileus. No evidence of large bowel obstruction. Are no small bowel obstruction. 2. Hiatal hernia. 3. Bibasilar atelectasis. Dictated by: Blane Lucero M.D. on 09/27/2020 at 12:40 Approved by: Blane Lucero M.D. on 09/27/2020 at 12:46
[2020-09-27 12:11] LABS: Influenza A - CEPHEID Flu A NEGATIVE (NEGATIVE); Influenza B - CEPHEID Flu B NEGATIVE (NEGATIVE)
[2020-09-27 12:33] LABS: COVID19 -Nasal RAPID Negative (Negative)
[2020-09-27] MEDS: SIMETHICONE 80 MG TABLET PO (13:58)
== END 2020-09-27 16:25 | disposition home or self-care (01) ==
PROVIDERS: Emergency Provider Nurse Practitioner Family; Family Provider Internal Medicine; PCP Internal Medicine
DX: R14.0 Abdominal distension (gaseous) (principal); R10.84 Generalized abdominal pain; R19.7 Diarrhea, unspecified; R07.9 Chest pain, unspecified; Z20.828 Contact with and (suspected) exposure to other viral communicable diseases; R11.2 Nausea with vomiting, unspecified
CPT/HCPCS: 36415; 51798; 70450; 74022; 74177; 80053; 82272; 82550; 83605; 83690; 84484; 85025; 85610; 85730; 87502; 87635; 93005; 96361; 96374; 99283; 99284; J2405; Q9967